=== PATIENT | male | born 1975 | race Caucasian/White ===

== ENCOUNTER 2019-05-08 15:45 | Emergency (ER) | payer OTHER ==
[~2019-05-08] VITALS: Ht 177.8 cm; Wt 90.7 kg
[~2019-05-08 15:45] MED LIST: ABAT250V; ABX; ALBU90OI INH; ALBU90OI61 INH; AMIT25 PO; AMIT50 PO; AZIT250 PO; BENZ100A PO; BUSP10 PO; BUSPIRONE; Bactrim Ds Tab1 EACH PO; CEPH500 PO; CIPR500 PO; CITA20 PO; CLIN150 PO; CYCL10 PO; Carafate1 GM/10 ML PO; DEPRESSION MED; DIAZ2 PO; DICY20 PO; DIPATR PO; DIVA500ER PO; DOXY100 PO; DOXY100T53 PO; DULO60 PO; EPIN.3I; EPIN.3I IM; FLUO20 PO; GABA300 PO; GUAI600T33 PO; HYDACE5 PO; HYDMOR2 PO; HYDMOR4 PO; HYDR1TAB94 PO; HYOS.125 SL; IBUP800 PO; Imitrex100 MG PO; KETO10 PO; LEVE500 PO; METO5A PO; MIRT30 PO; MORP30ER PO; MUPI2TO TOP; NAPR500 PO; NAPR550 PO; NORT10 PO; OMEP20ER PO; OMEP40CA12 PO; OMEPRAZOLE MAGN20 MG PO; ONDA4 PO; ONDA4ODT MM; OXYACE5T PO; OXYB5 PO; OXYC10ER PO; OXYC15ER PO; OXYC5 PO; Omeprazole20 M1 PO; PARO20 PO; PHENY100ER PO; POTA20PAC PO; PRED10 PO; PROC10; PROC10 PO; PROC25S PR; PROM25 PO; PROM25S PR; Percocet 5-3251 EACH PO; Pyridium200 MG PO; RIFA300 PO; RXCEPH500 PO; RXCLIN PO; RXONDA4ODT MM; RXOXYACE PO; RXPHEN200 PO; RXPROM25 PO; SACC250C PO; SUCR1 PO; SULTRIDS PO; SUMA25; SUMA25 PO; TAMS.4ER PO; TOPI50 PO; TRAM50 PO; TRAZODONE PO; TRIA80TC TOP; VANC250 PO; VANCOMYCIN IV; Zofran Odt4 MG SL; [UNRECOGNIZED DRUG - OTHER]
[2019-05-08 16:05] LABS: BASOPHILS PERCENT AUTO 0 % (0-2); EOSINOPHILS ABSOLUTE AUTO 0.03 K/mm3 (0.00-0.68); EOSINOPHILS PERCENT AUTO 1 % (0-6); Hematocrit 41.6 % (37.0-53.0); Hemoglobin 14.1 g/dL (13.5-17.5); IMMATURE GRAN ABSOLUTE AUTO 0.02 K/mm3 (0.00-0.10); IMMATURE GRAN PERCENT AUTO 0 % (0-1); LYMPHOCYTES PERCENT AUTO 32 % (21-46); MONOCYTES ABSOLUTE AUTO 0.45 K/mm3 (0.16-1.47); MONOCYTES PERCENT AUTO 8 % (4-13); Mean Corpuscular HGB 33.6 pg (26.0-34.0); Mean Corpuscular HGB Conc 33.9 g/dL (31.5-36.5); Mean Corpuscular Volume 99 fL (80-100); Mean Platelet Volume 9.3 fL (9.1-12.4); NEUTROPHILS ABSOLUTE AUTO 3.28 K/mm3 (1.96-9.15); NEUTROPHILS PERCENT AUTO 59 % (41-73); Platelet Count 177 K/mm3 (150-400); RDW Coefficient Variation 13.2 % (11.7-14.2); RDW Standard Deviation 47.5 fL (35.1-46.3); White Blood Cell Count 5.58 K/mm3 (4.00-11.30)
[2019-05-08 16:27] LABS: Alanine Aminotransfer (ALT/SGP 26 U/L (12-78); Albumin, Blood 3.8 g/dL (3.4-5.0); Alk Phos 86 U/L (50-136); Anion Gap 3 mmol/L (6-16); Aspartate Aminotrans (AST/SGOT 40 U/L (12-37); Bilirubin, Total 0.4 mg/dL (0.1-1.0); Blood Urea Nitrogen 20 mg/dL (8-24); Bun/Creatinine Ratio 25.2 (12.0-20.0); CO2, Blood 28 mmol/L (21-32); Chloride, Blood 109 mmol/L (98-108); Globulin, Blood 3.8 g/dL (2.2-4.0); Glomerular Filtration Rate >60 (60-); Glucose, Blood 114 mg/dL (70-99); Potassium, Blood 4.5 mmol/L (3.5-5.5); Sodium, Blood 140 mmol/L (136-145); Total Protein, Blood 7.6 g/dL (6.4-8.2)
== END 2019-05-08 17:34 | disposition home or self-care (01) ==
LOC: ER 15:45
PROVIDERS: Emergency Medicine
DX: F12.10 Cannabis abuse, uncomplicated (principal); F32.9 Major depressive disorder, single episode, unspecified; Z87.891 Personal history of nicotine dependence
CPT/HCPCS: 36415; 70450; 80053; 83605; 85025; 93005; 93010; 99284-25

== ENCOUNTER 2019-12-06 12:43 | Inpatient (IN) | payer OTHER ==
[~2019-12-06] VITALS: Ht 172.7 cm; Wt 90.0 kg
[~2019-12-06 12:43] MED LIST changes: -EPINEPHRIN0.3 MG/0.3 IM; -HALO5 PO; -LEVFLO500 PO; -LINE600 PO; -ONDA4ODT PO; -OXYC10TA19 PO; -ZOLOFT PO; -ZOLOFT50 MG PO
[2019-12-06] MEDS ORDERED: ZOLOFT50 MG PO (15:46)
[2019-12-06] MEDS ORDERED: SUMA25 PO (15:47)
[2019-12-06] MEDS ORDERED: HALO5 PO (15:48)
[2019-12-06 16:46] LABS: BASOPHILS ABSOLUTE AUTO 0.03 K/mm3 (0.00-0.23); BASOPHILS PERCENT AUTO 0 % (0-2); EOSINOPHILS ABSOLUTE AUTO 0.09 K/mm3 (0.00-0.68); EOSINOPHILS PERCENT AUTO 1 % (0-6); Hematocrit 42.4 % (37.0-53.0); Hemoglobin 14.2 g/dL (13.5-17.5); IMMATURE GRAN PERCENT AUTO 1 % (0-1); LYMPHOCYTES ABSOLUTE AUTO 1.67 K/mm3 (0.84-5.20); LYMPHOCYTES PERCENT AUTO 17 % (21-46); MONOCYTES ABSOLUTE AUTO 0.93 K/mm3 (0.16-1.47); MONOCYTES PERCENT AUTO 9 % (4-13); Mean Corpuscular HGB 32.3 pg (26.0-34.0); Mean Corpuscular HGB Conc 33.5 g/dL (31.5-36.5); Mean Corpuscular Volume 96 fL (80-100); NEUTROPHILS ABSOLUTE AUTO 7.27 K/mm3 (1.96-9.15); NEUTROPHILS PERCENT AUTO 72 % (41-73); Platelet Count 221 K/mm3 (150-400); RDW Coefficient Variation 13.2 % (11.7-14.2); RDW Standard Deviation 47.7 fL (35.1-46.3); White Blood Cell Count 10.09 K/mm3 (4.00-11.30)
--- NOTE | 2019-12-06 20:38 | NUR ---
PATIENT IS A NEW ADMIT FROM THE ED. SBA TRANSFER FROM [facility] TO BED. AXOX 3 AND FRIEND PRESENT ON ADMIT. IV VANCO AND LR STARTED IN ED INFUSING. PATIENT REPORTS 5/10 PAIN TO RIGHT AXILLARY AFTER PAIN MEDS GIVEN IN ED. DRESSING TO RIGHT AXILLARY FROM DR CLEMONS WHO DRAINED ABCESS IN ED. PATIENT ORIENTED TO ROOM AND CALL LIGHT SYSTEM. PATIENT FRIENDS REPORTS SHE WILL STAY THE NIGHT. CALL LIGHT IN REACH.
[2019-12-06] MEDS ORDERED: EPINEPHRIN0.3 MG/0.3 IM (20:45)
[2019-12-06] MEDS ORDERED: ONDA4ODT PO (20:46)
[2019-12-06] MEDS ORDERED: PROM25 PO (20:46)
[2019-12-06] MEDS ORDERED: ZOLOFT PO (20:47)
[2019-12-06 20:50] LABS: Alanine Aminotransfer (ALT/SGP 20 U/L (12-78); Albumin/Globulin Ratio 0.6 (0.8-1.8); Alk Phos 88 U/L (50-136); Anion Gap 5 mmol/L (6-16); Aspartate Aminotrans (AST/SGOT 16 U/L (12-37); Bilirubin, Total 0.5 mg/dL (0.1-1.0); Blood Urea Nitrogen 14 mg/dL (8-24); Bun/Creatinine Ratio 19.1 (12.0-20.0); CO2, Blood 27 mmol/L (21-32); Calcium, Blood 8.9 mg/dL (8.5-10.1); Chloride, Blood 103 mmol/L (98-108); Creatinine, Blood 0.73 mg/dL (0.60-1.20); Globulin, Blood 4.7 g/dL (2.2-4.0); Glomerular Filtration Rate >60 (60-); Glucose, Blood 87 mg/dL (70-99); Potassium, Blood 4.1 mmol/L (3.5-5.5); Sodium, Blood 135 mmol/L (136-145); Total Protein, Blood 7.7 g/dL (6.4-8.2)
--- NOTE | 2019-12-06 22:32 | NUR ---
NS INFUSING X ONE OF TWO BAGS. NOTED PSORISIS PER PATIENT ON CHEST AND NECK. DENIES SOB AND N/V. GIRL FRIEND PRESENT AND RECLINER PROVIDED TO STAY THE NIGHT. CALL LIGHT IN REACH.
--- NOTE | 2019-12-07 03:29 | NUR ---
SHIFT SUMMARY PATIENT HAD NO ACUTE CHANGES OBSERVED. LR FINISHED INFUSING AND VANCO FROM THE ED. NS INFUSING X ONE OF TWO BAGS AT 100 mL/HR. AXOX 4 AND INDEPENDENT IN THE ROOM. VSS/AFEBRILE. DENIES SOB AND N/V. PIV REMAINS INTACT. REPORTED RIGHT AXILLARY PAIN FROM WHERE DR CLEMONS DRAINED ABSCESS. IV TORADOL 30 MG GIVEN PER EMAR. NATALY BLOOD ON DRESSING FROM ED ON ADMIT. DRESSING CHANGED. IV ABXS INFUSED. HX IV DRUG USE AND REPORTS USES CANNABIS DAILY. PATIENT SIGNIFICANT OTHER STAYED THE NIGHT. RECLINER PROVIDED. PSORIASIS ON CHEST AND NECK PER PATIENT. CALL LIGHT IN REACH. BED IN LOWEST POSITION. WILL CONTINUE TO MONITOR UNTIL DAY SHIFT NURSE ASSUMES CARE.
--- NOTE | 2019-12-07 05:11 | NUR ---
PATIENT'S ([facility]) CLIP ON POCKET KNIFE LOCKED IN DRAW FROM ADMIT.
[2019-12-07 05:12] LABS: BASOPHILS ABSOLUTE AUTO 0.02 K/mm3 (0.00-0.23); BASOPHILS PERCENT AUTO 0 % (0-2); EOSINOPHILS ABSOLUTE AUTO 0.11 K/mm3 (0.00-0.68); EOSINOPHILS PERCENT AUTO 2 % (0-6); Hematocrit 39.1 % (37.0-53.0); Hemoglobin 13.2 g/dL (13.5-17.5); IMMATURE GRAN ABSOLUTE AUTO 0.07 K/mm3 (0.00-0.10); IMMATURE GRAN PERCENT AUTO 1 % (0-1); LYMPHOCYTES ABSOLUTE AUTO 2.03 K/mm3 (0.84-5.20); LYMPHOCYTES PERCENT AUTO 34 % (21-46); MONOCYTES ABSOLUTE AUTO 0.61 K/mm3 (0.16-1.47); MONOCYTES PERCENT AUTO 10 % (4-13); Mean Corpuscular HGB 32.4 pg (26.0-34.0); Mean Corpuscular HGB Conc 33.8 g/dL (31.5-36.5); Mean Corpuscular Volume 96 fL (80-100); Mean Platelet Volume 8.9 fL (9.1-12.4); NEUTROPHILS ABSOLUTE AUTO 3.08 K/mm3 (1.96-9.15); NEUTROPHILS PERCENT AUTO 52 % (41-73); Platelet Count 235 K/mm3 (150-400); RDW Coefficient Variation 13.3 % (11.7-14.2); RDW Standard Deviation 47.3 fL (35.1-46.3); Red Blood Cell Count 4.07 M/mm3 (4.30-5.90); White Blood Cell Count 5.92 K/mm3 (4.00-11.30)
[2019-12-07 05:41] LABS: Anion Gap 4 mmol/L (6-16); Blood Urea Nitrogen 23 mg/dL (8-24); Bun/Creatinine Ratio 28.9 (12.0-20.0); CO2, Blood 28 mmol/L (21-32); Calcium, Blood 8.8 mg/dL (8.5-10.1); Chloride, Blood 107 mmol/L (98-108); Glomerular Filtration Rate >60 (60-); Glucose, Blood 94 mg/dL (70-99); Potassium, Blood 4.2 mmol/L (3.5-5.5); Sodium, Blood 139 mmol/L (136-145)
--- NOTE | 2019-12-07 19:16 | NUR ---
SHIFT SUMMARY PT HAS BEEN SLEEPING A LOT OF THE SHIFT. MEDICATED FOR RIGHT AXILLARY PAIN MULTIPLE TIMES THIS SHIFT. DR. CLEMONS IN THIS EVENING AND REMOVED PACKING. DRY GAUZE IN PLACE. PT WILL TAKE SHOWER AFTER IV ANTIBIOTIC FINISHED PER DR. CLEMONS DIRECTIONS. NO ACUTE CHANGES THIS SHIFT. REPORT GIVEN TO CANDIDO TYSON. CALL LIGHT IN REACH.
--- NOTE | 2019-12-08 05:42 | NUR ---
SHIFT SUMMARY PT HAS HAD NO ACUTE CHANGES THIS SHIFT, MEDICATED PER MAR FOR PAIN, PT HAS BEEN OUTSIDE SEVERAL TIMES INDEP THIS SHIFT, PT SHOWERED- R AUX WOUND CLEANED AND REDRESSED AFTER, FAMILY AT BEDSIDE T/O SHIFT & AT THIS TIME, PT APPEARS TO BE SLEEPING, CALL LIGHT IN REACH, WILL CONT TO MONITOR UNTIL REPORT GIVEN TO DAY RN.
[2019-12-08 06:16] LABS: BASOPHILS ABSOLUTE AUTO 0.02 K/mm3 (0.00-0.23); BASOPHILS PERCENT AUTO 0 % (0-2); EOSINOPHILS ABSOLUTE AUTO 0.16 K/mm3 (0.00-0.68); EOSINOPHILS PERCENT AUTO 3 % (0-6); Hematocrit 37.7 % (37.0-53.0); Hemoglobin 12.5 g/dL (13.5-17.5); IMMATURE GRAN ABSOLUTE AUTO 0.09 K/mm3 (0.00-0.10); IMMATURE GRAN PERCENT AUTO 2 % (0-1); LYMPHOCYTES ABSOLUTE AUTO 2.22 K/mm3 (0.84-5.20); LYMPHOCYTES PERCENT AUTO 40 % (21-46); MONOCYTES ABSOLUTE AUTO 0.42 K/mm3 (0.16-1.47); MONOCYTES PERCENT AUTO 8 % (4-13); Mean Corpuscular HGB 31.6 pg (26.0-34.0); Mean Corpuscular HGB Conc 33.2 g/dL (31.5-36.5); Mean Corpuscular Volume 95 fL (80-100); NEUTROPHILS ABSOLUTE AUTO 2.71 K/mm3 (1.96-9.15); NEUTROPHILS PERCENT AUTO 48 % (41-73); Platelet Count 229 K/mm3 (150-400); RDW Coefficient Variation 12.8 % (11.7-14.2); RDW Standard Deviation 44.8 fL (35.1-46.3); Red Blood Cell Count 3.95 M/mm3 (4.30-5.90); White Blood Cell Count 5.62 K/mm3 (4.00-11.30)
[2019-12-08 06:34] LABS: Alanine Aminotransfer (ALT/SGP 21 U/L (12-78); Albumin, Blood 2.7 g/dL (3.4-5.0); Albumin/Globulin Ratio 0.6 (0.8-1.8); Alk Phos 80 U/L (50-136); Anion Gap 8 mmol/L (6-16); Aspartate Aminotrans (AST/SGOT 17 U/L (12-37); Bilirubin, Total 0.1 mg/dL (0.1-1.0); Blood Urea Nitrogen 19 mg/dL (8-24); Bun/Creatinine Ratio 25.1 (12.0-20.0); CO2, Blood 24 mmol/L (21-32); Calcium, Blood 8.7 mg/dL (8.5-10.1); Chloride, Blood 109 mmol/L (98-108); Creatinine, Blood 0.76 mg/dL (0.60-1.20); Globulin, Blood 4.5 g/dL (2.2-4.0); Glomerular Filtration Rate >60 (60-); Glucose, Blood 106 mg/dL (70-99); Potassium, Blood 3.9 mmol/L (3.5-5.5); Sodium, Blood 141 mmol/L (136-145); Total Protein, Blood 7.2 g/dL (6.4-8.2); Vancomycin, Trough 11.4 ug/mL (5.0-10.0)
[2019-12-08] MEDS ORDERED: OXYC10TA19 PO (12:14)
[2019-12-08] MEDS ORDERED: LINE600 PO (12:15)
--- NOTE | 2019-12-08 15:08 | NUR ---
DISCHARGE THIS RN EXPLAINED DISCHARGE INSTRUCTIONS AND MEDICATIONS TO PT AND HE REPORTS HE UNDERSTANDS. PT'S IV REMOVED WITHOUT DIFFICULTY. MEDICATIONS FAXED TO [facility] PER PT REQUEST. PT'S BELONGINGS WITH PT. PT AMBULATORY TO PRIVATE CAR.
--- NOTE | 2019-12-08 15:56 | NUR ---
SPOKE WITH DR AGUIRRE R/T DISCHARGE ABX. PER DR. AGUIRRE, D/C ZYVOX AND ADD FOLLOWING MEDICATION: LEVAQUIN 500 MG PO DAILY DISP: 7 REFILLS: 0 RX CALLED TO [facility], WHERE PT WAS WAITING AND MADE AWARE OF THE CHANGE.
[2019-12-08] MEDS ORDERED: LEVFLO500 PO (16:00)
== END 2019-12-08 14:59 | disposition home or self-care (01) | DRG 603 ==
LOC: ER 12:43 → MEDS 12:44 → ER 12:44 → MEDS 17:45
PROVIDERS: Emergency Medicine; Internal Medicine; ADMIT Internal Medicine
PROC: 0X943ZZ Drainage of Right Axilla, Percutaneous Approach (ICD-10-PCS; principal; 2019-12-06)
DX: L03.111 Cellulitis of right axilla (principal); L02.411 Cutaneous abscess of right axilla; F19.10 Other psychoactive substance abuse, uncomplicated; F32.9 Major depressive disorder, single episode, unspecified; Z88.1 Allergy status to other antibiotic agents; Z88.5 Allergy status to narcotic agent; Z88.0 Allergy status to penicillin; Z88.8 Allergy status to other drugs, medicaments and biological substances; Z87.891 Personal history of nicotine dependence
CPT/HCPCS: 36415; 73201; 80048; 80053; 80202; 83605; 85025; 87040; 87070; 87075; 87077; 87147; 87186; 87205; 96361; 96365-59; 96375-59; 99284-25; J1644; J1885; J2405; J3010; J3370; J7030; J7050; J7120; Q9967

== ENCOUNTER → 2019-12-06 | Outpatient (CLI) | payer OTHER ==
[~2019-12-06] MED LIST changes: +EPINEPHRIN0.3 MG/0.3 IM; +HALO5 PO; +LEVFLO500 PO; +LINE600 PO; -OMEPRAZOLE MAGN20 MG PO; +ONDA4ODT PO; +OXYC10TA19 PO; +ZOLOFT PO; +ZOLOFT50 MG PO
[2019-12-06 12:32] LABS: BASOPHILS ABSOLUTE AUTO 0.03 K/mm3 (0.00-0.23); BASOPHILS PERCENT AUTO 0 % (0-2); EOSINOPHILS ABSOLUTE AUTO 0.11 K/mm3 (0.00-0.68); EOSINOPHILS PERCENT AUTO 1 % (0-6); Hematocrit 44.4 % (37.0-53.0); Hemoglobin 14.7 g/dL (13.5-17.5); IMMATURE GRAN ABSOLUTE AUTO 0.09 K/mm3 (0.00-0.10); IMMATURE GRAN PERCENT AUTO 1 % (0-1); LYMPHOCYTES ABSOLUTE AUTO 2.03 K/mm3 (0.84-5.20); LYMPHOCYTES PERCENT AUTO 19 % (21-46); MONOCYTES ABSOLUTE AUTO 0.94 K/mm3 (0.16-1.47); MONOCYTES PERCENT AUTO 9 % (4-13); Mean Corpuscular HGB 32.3 pg (26.0-34.0); Mean Corpuscular HGB Conc 33.1 g/dL (31.5-36.5); Mean Corpuscular Volume 98 fL (80-100); NEUTROPHILS ABSOLUTE AUTO 7.43 K/mm3 (1.96-9.15); NEUTROPHILS PERCENT AUTO 70 % (41-73); Platelet Count 239 K/mm3 (150-400); RDW Coefficient Variation 13.4 % (11.7-14.2); RDW Standard Deviation 48.9 fL (35.1-46.3); Red Blood Cell Count 4.55 M/mm3 (4.30-5.90); White Blood Cell Count 10.63 K/mm3 (4.00-11.30)
== END ==
LOC: LAB EV 12:04 → LAB SHORT 12:04
PROVIDERS: Emergency Medicine
DX: Z09 Encounter for follow-up examination after completed treatment for conditions other than malignant neoplasm (principal); Z87.39 Personal history of other diseases of the musculoskeletal system and connective tissue
CPT/HCPCS: 85025

== ENCOUNTER 2020-06-26 16:20 | Emergency (ER) | payer OTHER ==
[~2020-06-26] VITALS: Ht 170.2 cm; Wt 90.7 kg
[~2020-06-26 16:20] MED LIST changes: +EPINEPHRIN0.3 MG/0.3 IM; +EPIPEN 2-P0.3 MG/0.1; +HALO5 PO; +LEVFLO500 PO; +LINE600 PO; +MEDICAL MARIJUANA; +ONDA4ODT PO; +OXYC10TA19 PO; +SLIPPERY ELM; +ZOLOFT PO; +ZOLOFT50 MG PO
[2020-06-26 17:34] LABS: BASOPHILS ABSOLUTE AUTO 0.02 K/mm3 (0.00-0.23); BASOPHILS PERCENT AUTO 0 % (0-2); EOSINOPHILS PERCENT AUTO 0 % (0-6); Hematocrit 43.9 % (37.0-53.0); Hemoglobin 15.5 g/dL (13.5-17.5); IMMATURE GRAN ABSOLUTE AUTO 0.04 K/mm3 (0.00-0.10); IMMATURE GRAN PERCENT AUTO 0 % (0-1); LYMPHOCYTES ABSOLUTE AUTO 1.44 K/mm3 (0.84-5.20); LYMPHOCYTES PERCENT AUTO 11 % (21-46); MONOCYTES ABSOLUTE AUTO 0.58 K/mm3 (0.16-1.47); MONOCYTES PERCENT AUTO 4 % (4-13); Mean Corpuscular HGB 32.9 pg (26.0-34.0); Mean Corpuscular HGB Conc 35.3 g/dL (31.5-36.5); Mean Corpuscular Volume 93 fL (80-100); NEUTROPHILS ABSOLUTE AUTO 10.96 K/mm3 (1.96-9.15); NEUTROPHILS PERCENT AUTO 84 % (41-73); Platelet Count 187 K/mm3 (150-400); RDW Standard Deviation 44.7 fL (35.1-46.3); Red Blood Cell Count 4.71 M/mm3 (4.30-5.90); White Blood Cell Count 13.04 K/mm3 (4.00-11.30)
[2020-06-26 17:46] LABS: Troponin I <0.015 ng/mL (0.000-0.040)
[2020-06-26 17:47] LABS: Alanine Aminotransfer (ALT/SGP 22 U/L (12-78); Albumin, Blood 4.2 g/dL (3.4-5.0); Albumin/Globulin Ratio 0.9 (0.8-1.8); Alk Phos 84 U/L (50-136); Anion Gap 9 mmol/L (6-16); Aspartate Aminotrans (AST/SGOT 18 U/L (12-37); Bilirubin, Direct <0.1 mg/dL (0.0-0.3); Bilirubin, Indirect Unable to Calculate mg/dL (0.1-0.7); Bilirubin, Total 0.4 mg/dL (0.1-1.0); Blood Urea Nitrogen 17 mg/dL (8-24); Bun/Creatinine Ratio 21.2 (12.0-20.0); CO2, Blood 21 mmol/L (21-32); Calcium, Blood 9.7 mg/dL (8.5-10.1); Chloride, Blood 110 mmol/L (98-108); Globulin, Blood 4.7 g/dL (2.2-4.0); Glomerular Filtration Rate >60 (60-); Glucose, Blood 128 mg/dL (70-99); Potassium, Blood 3.9 mmol/L (3.5-5.5); Sodium, Blood 140 mmol/L (136-145); Total Protein, Blood 8.9 g/dL (6.4-8.2)
[2020-06-26] MEDS ORDERED: SERT100 PO (17:54)
[2020-06-26] MEDS ORDERED: Pepcid20 MG PO (20:26)
== END 2020-06-26 20:30 | disposition home or self-care (01) ==
LOC: ER 16:20
PROVIDERS: Emergency Medicine
DX: R10.13 Epigastric pain (principal); R56.9 Unspecified convulsions; R11.2 Nausea with vomiting, unspecified; R11.10 Vomiting, unspecified; Z90.89 Acquired absence of other organs; F32.9 Major depressive disorder, single episode, unspecified; Z88.1 Allergy status to other antibiotic agents; Z88.0 Allergy status to penicillin; Z88.6 Allergy status to analgesic agent; Z88.5 Allergy status to narcotic agent; Z91.030 Bee allergy status; Z79.899 Other long term (current) drug therapy; Z87.891 Personal history of nicotine dependence
CPT/HCPCS: 36415; 71045; 80048; 80076; 83690; 83735; 84484; 85025; 93005; 93010; 96365; 96375; 99284-25; J1630; J1953; J2405

== ENCOUNTER 2021-03-20 13:43 | Emergency (ER) | payer OTHER ==
[~2021-03-20 13:43] MED LIST changes: +Pepcid20 MG PO; +SERT100 PO
== END 2021-03-20 15:11 | disposition left against medical advice (07) ==
LOC: ER 13:43
DX: Z53.21 Procedure and treatment not carried out due to patient leaving prior to being seen by health care provider (principal)

== ENCOUNTER → 2021-10-03 | Outpatient (CLI) | payer OTHER ==
[2021-10-08 07:09] LABS: COTININE Negative ng/mL (Cutoff=300)
== END | disposition home or self-care (01) ==
LOC: LAB 14:52 → LAB SHORT 14:52
PROVIDERS: Orthopaedic Surgery
DX: Z01.812 Encounter for preprocedural laboratory examination (principal); M16.12 Unilateral primary osteoarthritis, left hip; Z87.891 Personal history of nicotine dependence

== ENCOUNTER → 2021-12-02 | Outpatient (CLI) | payer OTHER ==
[2021-12-02 17:53] LABS: U Amphetamine Screen DETECTED; U Barbituate Screen Not Detected; U Benzodiazapine Screen DETECTED; U Buprenorphine Screen Not Detected; U Cannabinoids Screen DETECTED; U Cocaine Screen Not Detected; U Methadone Screen Not Detected; U Methamphetamine Screen DETECTED; U Opiates Screen DETECTED; U Oxycodone Screen Not Detected; U Phencyclidine Screen Not Detected; U Propoxyphene Screen Not Detected
== END ==
LOC: LAB SHORT 15:41
PROVIDERS: Orthopaedic Surgery
DX: M16.12 Unilateral primary osteoarthritis, left hip (principal); Z02.89 Encounter for other administrative examinations

== ENCOUNTER 2022-02-04 11:55 | Day surgery (SDC) | payer OTHER ==
[~2022-02-04] VITALS: Ht 172.7 cm; Wt 111.6 kg
--- NOTE | 2022-02-04 12:47 | NUR ---
History, Chart, Medications and Allergies reviewed before start of procedure. Patient confirms NPO status and agrees with scheduled surgery. PT CHART SHOWS MSSA + ON 01/20/22, PER PT, HE WAS ONLY GIVEN THE TWO HCG SHOWERS AND NO MUPIROCIN OINTMENT FOR NARES. WILL NOTIFY DR. MOSS.
--- NOTE | 2022-02-04 17:46 | NUR ---
ARRIVED TO UNIT FORM PACU IN BED. VSS ON RA, S/P L RADHA, RECIEVED SPINAL, HAS FULL SENSATION TO BLE, DENIES N/T. AQUACEL & POLAR PACK IN PLACE TO L HIP, C/D/I. TOLERATING PO LIQUIDS AT THIS TIME.
--- NOTE | 2022-02-04 19:07 | NUR ---
O2 DROPPING TO MID 80'S WHEN PATIENT FALLS ASLEEP, 2L O2 VIA NC PLACED, MAINTAINING >92%
--- NOTE | 2022-02-05 04:30 | NUR ---
SHIFT SUMMARY DRESSING TO LEFT HIP REMAINS CDI. OOB WITH 1 ASSIST USING GB + FWW--SLOW MOVING, BUT DOING WELL. 2 ROXICODONE FOR PAIN + X1 IV DILAUDID FOR BREAKTHROUGH PAIN MANAGEMENT. IV SL. CALL LIGHT WITHIN REACH.
[2022-02-05 05:28] LABS: BASOPHILS ABSOLUTE AUTO 0.01 K/mm3 (0.00-0.23); BASOPHILS PERCENT AUTO 0 % (0-2); EOSINOPHILS PERCENT AUTO 0 % (0-6); Hemoglobin 11.1 g/dL (13.5-17.5); IMMATURE GRAN ABSOLUTE AUTO 0.05 K/mm3 (0.00-0.10); IMMATURE GRAN PERCENT AUTO 1 % (0-1); LYMPHOCYTES ABSOLUTE AUTO 0.99 K/mm3 (0.84-5.20); LYMPHOCYTES PERCENT AUTO 10 % (21-46); MONOCYTES PERCENT AUTO 5 % (4-13); Mean Corpuscular HGB Conc 34.7 g/dL (31.5-36.5); Mean Corpuscular Volume 98 fL (80-100); NEUTROPHILS ABSOLUTE AUTO 8.35 K/mm3 (1.96-9.15); NEUTROPHILS PERCENT AUTO 84 % (41-73); Platelet Count 143 K/mm3 (150-400); RDW Standard Deviation 50.2 fL (35.1-46.3); Red Blood Cell Count 3.26 M/mm3 (4.30-5.90)
[2022-02-05 06:05] LABS: Anion Gap 7 mmol/L (6-16); Blood Urea Nitrogen 20 mg/dL (8-24); Bun/Creatinine Ratio 24.5 (12.0-20.0); CO2, Blood 25 mmol/L (21-32); Calcium, Blood 8.9 mg/dL (8.5-10.1); Chloride, Blood 106 mmol/L (98-108); Creatinine, Blood 0.82 mg/dL (0.60-1.20); Glomerular Filtration Rate >60 (60-); Glucose, Blood 119 mg/dL (70-99); Potassium, Blood 4.3 mmol/L (3.5-5.5); Sodium, Blood 138 mmol/L (136-145)
--- NOTE | 2022-02-05 06:07 | NUR ---
NOTIFIED OF PATIENTS PAIN.
[2022-02-05] MEDS ORDERED: Percocet 5-3251 EACH PO (08:07)
[2022-02-05] MEDS ORDERED: XARELTO20 MG PO (08:08)
--- NOTE | 2022-02-05 14:41 | NUR ---
DISCHARGE NOTE: PATIENT WAS EDUCATED ON DISCHARGE INSTRUCTIONS AND VERBALIZED UNDERSTANDING OF INSTRUCTIONS. HARD PERSCRIPTIONS ARE IN INSTRUCTIONS FOLDER. IV WAS TAKEN OUT AND WNL. PATIENT IS VOIDING AND TOLERATING PO INTAKE. PAIN IS SOMEWHAT MANAGED WITH PO PAIN MEDICATION. PATIENT IS A SBA WITH FWW AND GAIT BELT. AQUACEL ON RIGHT HIP IS C/D/I. PATIENT IS GETTING DRESSED AND ITEMS IN THE ROOM GATHERED. PATIENT WILL BE WHEELCHAIRED OUT TO WIFES CAR TO BE TAKEN HOME.
== END 2022-02-05 14:49 | disposition home or self-care (01) ==
LOC: ORSCMMR 11:55 → ORD 13:45 → ORSCMMR 13:45 → SURS 17:22 → ORSCMMR 02-05 14:49
PROVIDERS: Orthopaedic Surgery
PROC: 0SRB0JZ Replacement of Left Hip Joint with Synthetic Substitute, Open Approach (ICD-10-PCS; principal; 2022-02-04 13:30)
DX: M16.12 Unilateral primary osteoarthritis, left hip (principal); J44.9 Chronic obstructive pulmonary disease, unspecified; F41.9 Anxiety disorder, unspecified; F32.A Depression, unspecified; K21.9 Gastro-esophageal reflux disease without esophagitis; G40.909 Epilepsy, unspecified, not intractable, without status epilepticus; K76.9 Liver disease, unspecified; Z87.891 Personal history of nicotine dependence; Z79.899 Other long term (current) drug therapy
CPT/HCPCS: 36415; 72170; 80048; 85025; 97110; 97116; 97162; 97530; A9270; C1776; J0171; J0735; J1100; J1170; J1885; J2250; J2370; J2405; J2704; J2795; J3010; J3370; J7050; J7120

== ENCOUNTER 2022-05-05 18:16 | Observation (INO) | payer OTHER ==
[~2022-05-05] VITALS: Ht 172.7 cm; Wt 106.6 kg
[~2022-05-05 18:16] MED LIST changes: +XARELTO20 MG PO
[2022-05-05 19:37] LABS: Influenza A, PCR NEGATIVE (NEGATIVE); Influenza B, PCR NEGATIVE (NEGATIVE); Resp Syncytial Virus, PCR NEGATIVE (NEGATIVE); SARS-Cov-2 (COVID-19) PCR, MMC NEGATIVE (NEGATIVE)
[2022-05-05 19:48] LABS: BASOPHILS ABSOLUTE AUTO 0.01 K/mm3 (0.00-0.23); BASOPHILS PERCENT AUTO 0 % (0-2); EOSINOPHILS ABSOLUTE AUTO 0.13 K/mm3 (0.00-0.68); EOSINOPHILS PERCENT AUTO 2 % (0-6); Hematocrit 37.8 % (37.0-53.0); Hemoglobin 12.8 g/dL (13.5-17.5); IMMATURE GRAN ABSOLUTE AUTO 0.02 K/mm3 (0.00-0.10); IMMATURE GRAN PERCENT AUTO 0 % (0-1); LYMPHOCYTES ABSOLUTE AUTO 1.27 K/mm3 (0.84-5.20); LYMPHOCYTES PERCENT AUTO 16 % (21-46); MONOCYTES PERCENT AUTO 10 % (4-13); Mean Corpuscular HGB 32.7 pg (26.0-34.0); Mean Corpuscular HGB Conc 33.9 g/dL (31.5-36.5); Mean Corpuscular Volume 97 fL (80-100); Mean Platelet Volume 9.9 fL (9.1-12.4); NEUTROPHILS PERCENT AUTO 72 % (41-73); Platelet Count 156 K/mm3 (150-400); RDW Coefficient Variation 14.2 % (11.7-14.2); RDW Standard Deviation 49.6 fL (35.1-46.3); Red Blood Cell Count 3.91 M/mm3 (4.30-5.90); White Blood Cell Count 7.93 K/mm3 (4.00-11.30)
[2022-05-05 20:01] LABS: D-Dimer, Quantitative 2.87 mg/L FEU (0.00-0.52)
[2022-05-05 20:04] LABS: Albumin, Blood 3.6 g/dL (3.4-5.0); Albumin/Globulin Ratio 0.8 (0.8-1.8); Bilirubin, Total 0.4 mg/dL (0.1-1.0); Bun/Creatinine Ratio 21.7 (12.0-20.0); Calcium, Blood 9.3 mg/dL (8.5-10.1); Creatinine, Blood 0.79 mg/dL (0.60-1.20); Globulin, Blood 4.3 g/dL (2.2-4.0); Potassium, Blood 4.3 mmol/L (3.5-5.5); Total Protein, Blood 7.9 g/dL (6.4-8.2)
[2022-05-05 22:16] LABS: Anti-Xa UFH, PHA Monitoring <0.10 IU/mL; International Normalized Ratio 1.05
[2022-05-06 05:22] LABS: Albumin, Blood 3.7 g/dL (3.4-5.0); Albumin/Globulin Ratio 0.8 (0.8-1.8); Bilirubin, Total 0.5 mg/dL (0.1-1.0); Calcium, Blood 9.6 mg/dL (8.5-10.1); Creatinine, Blood 0.69 mg/dL (0.60-1.20); Globulin, Blood 4.7 g/dL (2.2-4.0); Potassium, Blood 3.7 mmol/L (3.5-5.5); Total Protein, Blood 8.4 g/dL (6.4-8.2)
[2022-05-06 06:00] LABS: BASOPHILS ABSOLUTE AUTO 0.01 K/mm3 (0.00-0.23); BASOPHILS PERCENT AUTO 0 % (0-2); EOSINOPHILS PERCENT AUTO 0 % (0-6); Hematocrit 40.5 % (37.0-53.0); Hemoglobin 13.6 g/dL (13.5-17.5); IMMATURE GRAN ABSOLUTE AUTO 0.05 K/mm3 (0.00-0.10); IMMATURE GRAN PERCENT AUTO 1 % (0-1); LYMPHOCYTES ABSOLUTE AUTO 0.83 K/mm3 (0.84-5.20); LYMPHOCYTES PERCENT AUTO 9 % (21-46); MONOCYTES ABSOLUTE AUTO 0.71 K/mm3 (0.16-1.47); MONOCYTES PERCENT AUTO 8 % (4-13); Mean Corpuscular HGB 32.7 pg (26.0-34.0); Mean Corpuscular HGB Conc 33.6 g/dL (31.5-36.5); Mean Corpuscular Volume 97 fL (80-100); Mean Platelet Volume 10.4 fL (9.1-12.4); NEUTROPHILS ABSOLUTE AUTO 7.41 K/mm3 (1.96-9.15); NEUTROPHILS PERCENT AUTO 82 % (41-73); Platelet Count 155 K/mm3 (150-400); RDW Coefficient Variation 13.9 % (11.7-14.2); RDW Standard Deviation 50.1 fL (35.1-46.3); Red Blood Cell Count 4.16 M/mm3 (4.30-5.90); White Blood Cell Count 9.01 K/mm3 (4.00-11.30)
--- NOTE | 2022-05-06 06:30 | NUR ---
SHIFT SUMMARY 47 YR M ADMITTED ON 05/05/22 FOR BODY PAIN AND SOB. FULL CODE. PT WAS ADMITTED LAST NIGHT AND UPON ARRIVAL STATED THAT HE FELT HORRIBLE. HE WAS GIVEN FENTNYL PER EMAR AND AT ONE POINT HE VOMITED APPROX 100 ML OF YELLOWISH LIQUID. HE WAS GIVEN ZOFRAN PER EMAR. THROUGHOUT THE SHIFT PT C/O BODY ACHES CHEST PAIN, AND NAUSEA. HE HAS NOT VOMITED AGAIN SINCE BEING GIVEN THE ZOFRAN.
[2022-05-06] MEDS ORDERED: Methadose 40 mg40 MG PO (09:56)
--- NOTE | 2022-05-06 10:07 | NUR ---
PT TAKES METHADONE AT HOME. DR. ENCISO NOTIFIED THAT THE PT TAKES 160MG OF METHADONE DAILY AND THAT PT REMAINS NAUSEOUS AFTER ADMINISTERED ZOFRAN.
[2022-05-06] MEDS ORDERED: Ativan1 MG PO (11:17)
[2022-05-06] MEDS ORDERED: XARELTO15 MG PO (12:07)
[2022-05-06] MEDS ORDERED: XARELTO20 MG PO (12:07)
--- NOTE | 2022-05-06 18:01 | NUR ---
SHIFT SUMMARY METHADONE & XARELTO STARTED THIS SHIFT. HEPARIN GTT DISCONTINUED. PT CLAMY, NAUSEATED, AND HEADACHE T/O THE DAY. DR. ENCISO NOTIFED AND IMITREX ORDERED. ICE ALSO OFFERED FOR PAIN RELIEF. PT FEVER FREE THIS SHIFT. OTHER VITALS REVIEWED & STABLE. PT HAD REFUSED TO EAT TODAY DUE TO NAUSEA, BUT DOES STATE HE IS FEELING SLIGHTLY BETTER THIS EVENING. FLUIDS ENCOURAGED TO STAY HYDRATED. NO OTHER NEEDS AT THIS TIME AND NO OTHER CHANGES IN ASSESSMENT AT THIS TIME.
[2022-05-06 22:48] LABS: U Amphetamine Screen Not Detected; U Barbituate Screen Not Detected; U Benzodiazapine Screen DETECTED; U Buprenorphine Screen Not Detected; U Cannabinoids Screen DETECTED; U Cocaine Screen Not Detected; U Methadone Screen DETECTED; U Methamphetamine Screen Not Detected; U Opiates Screen Not Detected; U Oxycodone Screen Not Detected; U Phencyclidine Screen Not Detected; U Propoxyphene Screen Not Detected
--- NOTE | 2022-05-07 04:30 | NUR ---
SHIFT SUMMARY PT CONTINUES TO HAVE SOME PAIN WITH INSPIRATION AND A HEADACHE. PT MEDICATED PER EMAR. PT STRUGGLED TO SLEEP, BUT WAS FINALLY ABLE TO SLEEP FOR A SHORT PERIOD OF TIME BEFORE HIS TELE BATTERIES NEEDED REPLACED. PT MEDICATED PER EMAR RECENTLY AND PT APPEARS TO BE RESTING AT THIS TIME. PT HAS CALL LIGHT WITHIN HIS REACH. PT STILL HAVING EPISODES OF NAUSEA. HE TRIED TO EAT EARLIER THIS EVENING, BUT IT MADE HIS NAUSEA WORSE. PT MEDICATED AT THAT TIME.
--- NOTE | 2022-05-07 08:00 | NUR ---
pt laying in bed awake a/ox3, pleasant and cooperative with care, follows commands well, denies pain, states his breathing is getting better, he is on r/a, resp even and unlabored, no cough noted, hrr, tele in place runinng sr in the 60's, voids via urinal, reports reg bm's, skin c/w/d, dionne, gema, call light in reach.
[2022-05-07] MEDS ORDERED: SUMA25 PO (12:51)
--- NOTE | 2022-05-07 14:47 | NUR ---
pt has been discharged to home, iv removed intact, went over discharge instructions, he verbalized understanding, new medication faxed to [facility], has all belongings, left via wheelchair with person picking him up and cutter operator asbestos shingle.
== END 2022-05-07 14:50 | disposition home or self-care (01) ==
LOC: ER 18:16 → MEDS 18:17 → ER 21:55 → MEDS 22:58
PROVIDERS: Family Medicine; Physician Assistant; ADMIT Internal Medicine
DX: I26.94 Multiple subsegmental thrombotic pulmonary emboli without acute cor pulmonale (principal); I82.412 Acute embolism and thrombosis of left femoral vein; G89.29 Other chronic pain; J44.9 Chronic obstructive pulmonary disease, unspecified; G40.909 Epilepsy, unspecified, not intractable, without status epilepticus; G43.909 Migraine, unspecified, not intractable, without status migrainosus; F32.9 Major depressive disorder, single episode, unspecified; Z88.5 Allergy status to narcotic agent; Z88.0 Allergy status to penicillin; Z88.2 Allergy status to sulfonamides; Z88.6 Allergy status to analgesic agent; Z88.1 Allergy status to other antibiotic agents; Z91.038 Other insect allergy status; Z87.891 Personal history of nicotine dependence; Z96.642 Presence of left artificial hip joint; Z20.822 Contact with and (suspected) exposure to COVID-19
CPT/HCPCS: 0241U; 36415; 71045; 71260; 80053; 84484; 85025; 85379; 85520; 85610; 85730; 93005; 93010; 93971; 96374; 96375; 96376; 99285-25; A9270; C8929; G0378; J1644; J2405; J3010; Q9957; Q9967

== ENCOUNTER 2022-05-11 18:56 | Emergency (ER) | payer OTHER ==
[~2022-05-11] VITALS: Ht 172.7 cm; Wt 104.3 kg
[~2022-05-11 18:56] MED LIST changes: +Ativan1 MG PO; +Methadose 40 mg40 MG PO; +XARELTO15 MG PO
[2022-05-11 19:49] LABS: BASOPHILS ABSOLUTE AUTO 0.01 K/mm3 (0.00-0.23); BASOPHILS PERCENT AUTO 0 % (0-2); EOSINOPHILS ABSOLUTE AUTO 0.13 K/mm3 (0.00-0.68); EOSINOPHILS PERCENT AUTO 2 % (0-6); Hematocrit 34.9 % (37.0-53.0); Hemoglobin 11.6 g/dL (13.5-17.5); IMMATURE GRAN ABSOLUTE AUTO 0.05 K/mm3 (0.00-0.10); IMMATURE GRAN PERCENT AUTO 1 % (0-1); LYMPHOCYTES ABSOLUTE AUTO 1.41 K/mm3 (0.84-5.20); LYMPHOCYTES PERCENT AUTO 21 % (21-46); MONOCYTES ABSOLUTE AUTO 0.42 K/mm3 (0.16-1.47); MONOCYTES PERCENT AUTO 6 % (4-13); Mean Corpuscular HGB Conc 33.2 g/dL (31.5-36.5); Mean Corpuscular Volume 96 fL (80-100); Mean Platelet Volume 9.4 fL (9.1-12.4); NEUTROPHILS ABSOLUTE AUTO 4.58 K/mm3 (1.96-9.15); NEUTROPHILS PERCENT AUTO 69 % (41-73); Platelet Count 202 K/mm3 (150-400); RDW Coefficient Variation 13.9 % (11.7-14.2); RDW Standard Deviation 49.4 fL (35.1-46.3); Red Blood Cell Count 3.63 M/mm3 (4.30-5.90)
[2022-05-11 20:06] LABS: Albumin/Globulin Ratio 0.7 (0.8-1.8); Bilirubin, Total 0.1 mg/dL (0.1-1.0); Bun/Creatinine Ratio 17.9 (12.0-20.0); Calcium, Blood 9.3 mg/dL (8.5-10.1); Creatinine, Blood 0.78 mg/dL (0.60-1.20); Globulin, Blood 4.3 g/dL (2.2-4.0); Potassium, Blood 4.1 mmol/L (3.5-5.5); Total Protein, Blood 7.3 g/dL (6.4-8.2)
== END 2022-05-11 21:53 | disposition home or self-care (01) ==
LOC: ER 18:56
PROVIDERS: Physician Assistant
DX: M79.661 Pain in right lower leg (principal); R07.9 Chest pain, unspecified; J44.9 Chronic obstructive pulmonary disease, unspecified; Z28.310 Unvaccinated for COVID-19; Z88.5 Allergy status to narcotic agent; Z88.2 Allergy status to sulfonamides; Z88.6 Allergy status to analgesic agent; Z88.1 Allergy status to other antibiotic agents; Z91.038 Other insect allergy status; Z79.899 Other long term (current) drug therapy; Z79.01 Long term (current) use of anticoagulants
CPT/HCPCS: 36415; 71046; 80053; 83690; 83880; 84484; 85025; 93005; 93010; 93971; 99284-25

== ENCOUNTER 2022-08-06 11:10 | Emergency (ER) | payer OTHER ==
[~2022-08-06] VITALS: Ht 172.7 cm; Wt 107.5 kg
[2022-08-06] MEDS ORDERED: METPRE4DP PO (14:19)
[2022-08-06] MEDS ORDERED: Robaxin750 MG PO (14:19)
== END 2022-08-06 14:38 | disposition home or self-care (01) ==
LOC: ER 11:10
DX: M77.8 Other enthesopathies, not elsewhere classified (principal); J44.9 Chronic obstructive pulmonary disease, unspecified; G43.909 Migraine, unspecified, not intractable, without status migrainosus; G40.909 Epilepsy, unspecified, not intractable, without status epilepticus; Z88.1 Allergy status to other antibiotic agents; Z91.038 Other insect allergy status; Z88.0 Allergy status to penicillin; Z88.6 Allergy status to analgesic agent; Z88.8 Allergy status to other drugs, medicaments and biological substances; Z88.2 Allergy status to sulfonamides; Z79.899 Other long term (current) drug therapy; Z79.01 Long term (current) use of anticoagulants; Z86.718 Personal history of other venous thrombosis and embolism; Z86.711 Personal history of pulmonary embolism; Z87.891 Personal history of nicotine dependence
CPT/HCPCS: 73030; 96372; 99283-25; J1885

== ENCOUNTER 2022-09-14 11:07 | Emergency (ER) | payer OTHER ==
[~2022-09-14] VITALS: Ht 172.7 cm; Wt 122.5 kg
[~2022-09-14 11:07] MED LIST changes: +METPRE4DP PO; +Robaxin750 MG PO
[2022-09-14] MEDS ORDERED: IRON18 MG (11:36)
[2022-09-14] MEDS ORDERED: Cialis2.5 MG (11:36)
[2022-09-14] MEDS ORDERED: ISONIAZID (11:37)
== END 2022-09-14 14:30 | disposition home or self-care (01) ==
LOC: ER 11:07
DX: R51.9 Headache, unspecified (principal); G89.29 Other chronic pain; T50.915A Adverse effect of multiple unspecified drugs, medicaments and biological substances, initial encounter; Z79.01 Long term (current) use of anticoagulants; Z79.899 Other long term (current) drug therapy; Z88.0 Allergy status to penicillin; Z88.5 Allergy status to narcotic agent; Z88.2 Allergy status to sulfonamides; Z91.030 Bee allergy status; Z87.891 Personal history of nicotine dependence
CPT/HCPCS: 36415; 70450; J1100; J1200; J1790; J2765

== ENCOUNTER → 2022-10-06 | Outpatient (CLI) | payer OTHER ==
[~2022-10-06] MED LIST changes: +Cialis2.5 MG; +IRON18 MG; +ISONIAZID
[2022-10-06 12:21] LABS: Albumin, Blood 3.6 g/dL (3.4-5.0); Albumin/Globulin Ratio 0.9 (0.8-1.8); Bilirubin, Total 0.2 mg/dL (0.1-1.0); Bun/Creatinine Ratio 25.5 (12.0-20.0); Calcium, Blood 9.4 mg/dL (8.5-10.1); Creatinine, Blood 0.71 mg/dL (0.60-1.20); Globulin, Blood 4.1 g/dL (2.2-4.0); Potassium, Blood 3.8 mmol/L (3.5-5.5); Total Protein, Blood 7.7 g/dL (6.4-8.2)
[2022-10-06 12:26] LABS: BASOPHILS ABSOLUTE AUTO 0.01 K/mm3 (0.00-0.23); BASOPHILS PERCENT AUTO 0 % (0-2); EOSINOPHILS ABSOLUTE AUTO 0.14 K/mm3 (0.00-0.68); EOSINOPHILS PERCENT AUTO 3 % (0-6); Hemoglobin 12.9 g/dL (13.5-17.5); IMMATURE GRAN ABSOLUTE AUTO 0.02 K/mm3 (0.00-0.10); IMMATURE GRAN PERCENT AUTO 0 % (0-1); LYMPHOCYTES ABSOLUTE AUTO 1.48 K/mm3 (0.84-5.20); LYMPHOCYTES PERCENT AUTO 28 % (21-46); MONOCYTES ABSOLUTE AUTO 0.47 K/mm3 (0.16-1.47); MONOCYTES PERCENT AUTO 9 % (4-13); Mean Corpuscular HGB 33.7 pg (26.0-34.0); Mean Corpuscular HGB Conc 34.9 g/dL (31.5-36.5); Mean Corpuscular Volume 97 fL (80-100); NEUTROPHILS ABSOLUTE AUTO 3.14 K/mm3 (1.96-9.15); NEUTROPHILS PERCENT AUTO 60 % (41-73); Platelet Count 196 K/mm3 (150-400); RDW Coefficient Variation 16.2 % (11.7-14.2); RDW Standard Deviation 56.1 fL (35.1-46.3); Red Blood Cell Count 3.83 M/mm3 (4.30-5.90); White Blood Cell Count 5.26 K/mm3 (4.00-11.30)
== END | disposition home or self-care (01) ==
LOC: RAD SHORT 10:47
PROVIDERS: Family Medicine
DX: Z22.7 Latent tuberculosis (principal)
CPT/HCPCS: 80053; 85025

== ENCOUNTER → 2022-11-04 | Outpatient (CLI) | payer OTHER ==
[2022-11-04 13:46] LABS: BASOPHILS ABSOLUTE AUTO 0.01 K/mm3 (0.00-0.23); BASOPHILS PERCENT AUTO 0 % (0-2); EOSINOPHILS ABSOLUTE AUTO 0.14 K/mm3 (0.00-0.68); EOSINOPHILS PERCENT AUTO 3 % (0-6); Hematocrit 38.9 % (37.0-53.0); Hemoglobin 13.5 g/dL (13.5-17.5); IMMATURE GRAN ABSOLUTE AUTO 0.01 K/mm3 (0.00-0.10); IMMATURE GRAN PERCENT AUTO 0 % (0-1); LYMPHOCYTES ABSOLUTE AUTO 1.38 K/mm3 (0.84-5.20); LYMPHOCYTES PERCENT AUTO 27 % (21-46); MONOCYTES ABSOLUTE AUTO 0.46 K/mm3 (0.16-1.47); MONOCYTES PERCENT AUTO 9 % (4-13); Mean Corpuscular HGB Conc 34.7 g/dL (31.5-36.5); Mean Corpuscular Volume 95 fL (80-100); NEUTROPHILS ABSOLUTE AUTO 3.18 K/mm3 (1.96-9.15); NEUTROPHILS PERCENT AUTO 61 % (41-73); Platelet Count 204 K/mm3 (150-400); RDW Coefficient Variation 15.7 % (11.7-14.2); RDW Standard Deviation 55.2 fL (35.1-46.3); Red Blood Cell Count 4.09 M/mm3 (4.30-5.90); White Blood Cell Count 5.18 K/mm3 (4.00-11.30)
[2022-11-04 15:28] LABS: Albumin, Blood 3.9 g/dL (3.4-5.0); Albumin/Globulin Ratio 0.9 (0.8-1.8); Bilirubin, Total 0.3 mg/dL (0.1-1.0); Bun/Creatinine Ratio 26.8 (12.0-20.0); Calcium, Blood 9.5 mg/dL (8.5-10.1); Creatinine, Blood 0.86 mg/dL (0.60-1.20); Globulin, Blood 4.2 g/dL (2.2-4.0); Potassium, Blood 3.3 mmol/L (3.5-5.5); Total Protein, Blood 8.1 g/dL (6.4-8.2)
== END | disposition home or self-care (01) ==
LOC: LAB SHORT 09:20
PROVIDERS: Family Medicine
DX: Z22.7 Latent tuberculosis (principal)
CPT/HCPCS: 80053; 85025

== ENCOUNTER → 2022-12-05 | Outpatient (CLI) | payer OTHER ==
[~2022-12-05] MED LIST changes: +Cleocin HCl150 MG PO; +IBU600 M1 PO; +Voltaren100 GM TOP
[2022-12-05 14:47] LABS: BASOPHILS ABSOLUTE AUTO 0.01 K/mm3 (0.00-0.23); BASOPHILS PERCENT AUTO 0 % (0-2); EOSINOPHILS ABSOLUTE AUTO 0.13 K/mm3 (0.00-0.68); EOSINOPHILS PERCENT AUTO 3 % (0-6); Hematocrit 38.9 % (37.0-53.0); Hemoglobin 13.6 g/dL (13.5-17.5); IMMATURE GRAN ABSOLUTE AUTO 0.01 K/mm3 (0.00-0.10); IMMATURE GRAN PERCENT AUTO 0 % (0-1); LYMPHOCYTES PERCENT AUTO 28 % (21-46); MONOCYTES ABSOLUTE AUTO 0.36 K/mm3 (0.16-1.47); MONOCYTES PERCENT AUTO 7 % (4-13); Mean Corpuscular HGB 33.6 pg (26.0-34.0); Mean Corpuscular Volume 96 fL (80-100); Mean Platelet Volume 10.3 fL (9.1-12.4); NEUTROPHILS ABSOLUTE AUTO 3.18 K/mm3 (1.96-9.15); NEUTROPHILS PERCENT AUTO 62 % (41-73); Platelet Count 190 K/mm3 (150-400); RDW Coefficient Variation 15.7 % (11.7-14.2); RDW Standard Deviation 54.5 fL (35.1-46.3); Red Blood Cell Count 4.05 M/mm3 (4.30-5.90); White Blood Cell Count 5.09 K/mm3 (4.00-11.30)
[2022-12-05 15:27] LABS: Albumin, Blood 3.8 g/dL (3.4-5.0); Albumin/Globulin Ratio 0.9 (0.8-1.8); Bilirubin, Total 0.6 mg/dL (0.1-1.0); Bun/Creatinine Ratio 20.1 (12.0-20.0); Creatinine, Blood 0.9 mg/dL (0.60-1.20); Globulin, Blood 4.3 g/dL (2.2-4.0); Potassium, Blood 3.5 mmol/L (3.5-5.5); Total Protein, Blood 8.1 g/dL (6.4-8.2)
== END | disposition home or self-care (01) ==
LOC: LAB SHORT 11:30 → LAB 11:30
PROVIDERS: Family Medicine
DX: Z22.7 Latent tuberculosis (principal)
CPT/HCPCS: 80053; 85025

== ENCOUNTER → 2022-12-19 | Outpatient (CLI) | payer OTHER ==
[~2022-12-19] MED LIST changes: +ALBU4; +ATOR20; +Ativan1 MG; +METOCLOPRAMIDE; +PRAZ1; +PYRI100
== END | disposition home or self-care (01) ==
LOC: LAB 09:15 → LAB SHORT 09:15
DX: M25.572 Pain in left ankle and joints of left foot (principal)
CPT/HCPCS: 84550

== ENCOUNTER 2022-12-23 06:02 | Day surgery (SDC) | payer OTHER ==
[~2022-12-23] VITALS: Ht 172.7 cm; Wt 125.9 kg
[~2022-12-23 06:02] MED LIST changes: -ALBU4; -ATOR20; -Ativan1 MG; -METOCLOPRAMIDE; -PRAZ1; -PYRI100
[2022-12-23] MEDS ORDERED: Ativan1 MG (06:37)
[2022-12-23] MEDS ORDERED: PRAZ1 (06:39)
[2022-12-23] MEDS ORDERED: ALBU4 (06:41)
[2022-12-23] MEDS ORDERED: PYRI100 (06:42)
[2022-12-23] MEDS ORDERED: ATOR20 (06:42)
[2022-12-23] MEDS ORDERED: METOCLOPRAMIDE (06:43)
--- NOTE | 2022-12-23 08:04 | NUR ---
12/23/22 0804 HENRY FRANK IV PUT IN RH IN BUT COULD NOT ADVANCE. SECOND PUT IN RAC ALSO GOT IN BUT COULD NOT ADVANCE. THIRD ONE PUT IN LH COULD NOT BE ADVANCED.FORTH ONE PUT IN LFA WAS IN BUT COULD NOT BE ADVANCED.RBC COULD NOT BE ADVANCED.SIXTH AND SEVENTH ONE WAS PUT IN THE LEFT HAND AND BOTH COULD NOT BE ADVANCED.
== END 2022-12-23 08:10 | disposition home or self-care (01) ==
LOC: ORSCSDS 06:02
DX: R13.10 Dysphagia, unspecified (principal); Z53.9 Procedure and treatment not carried out, unspecified reason
CPT/HCPCS: J2001; J2250; J2704; J7120

== ENCOUNTER → 2023-01-23 | Outpatient (CLI) | payer OTHER ==
[~2023-01-23] MED LIST changes: +ALBU4; +ATOR20; +Ativan1 MG; +METOCLOPRAMIDE; +PRAZ1; +PYRI100
[2023-01-23 11:54] LABS: Source, Urine Clean Catch
[2023-01-23 14:15] LABS: Red Blood Cells, Urine 0-2 /hpf (0-2); White Blood Cells, Urine 0-2 /hpf (0-5)
[2023-01-23 14:16] LABS: Amorphous Light (0-Heavy); Bacteria Mod /hpf; Hyaline Casts 0-2 /lpf (0-2); Mucus Light (0-Heavy); Squamous Epithelial Cells Rare /hpf (Few)
== END | disposition home or self-care (01) ==
LOC: LAB SHORT 11:51
PROVIDERS: Family Medicine
DX: R30.0 Dysuria (principal); R39.15 Urgency of urination; R35.1 Nocturia
CPT/HCPCS: 81015; 87086; 87147

== ENCOUNTER 2023-02-12 00:59 | Day surgery (SDC) | payer OTHER ==
[2023-02-12 11:13] VITALS: BP 123/75
[2023-02-12] MEDS ORDERED: Flonase 0.05% N16 GM (12:53)
[2023-02-12] MEDS ORDERED: PRAZ1 (12:54)
[2023-02-12] MEDS ORDERED: SUMA25 PO (12:55)
[2023-02-12] MEDS ORDERED: ALBU2.5V5 (13:44)
[2023-02-12] MEDS ORDERED: ANORO ELLIPTA1 EACH (13:44)
[2023-02-12] MEDS ORDERED: OMEP20ER (13:44)
[2023-02-12] MEDS ORDERED: XARELTO20 MG (13:44)
[2023-02-12] MEDS ORDERED: FLUTICASONE-SA1 EAC1 (13:44)
[2023-02-12] MEDS ORDERED: SERT100 PO (13:45)
[2023-02-12] MEDS ORDERED: PRAZ1 PO (13:45)
[2023-02-12] MEDS ORDERED: LORA.5 PO (13:45)
[2023-02-12] MEDS ORDERED: FERSU90EL (13:45)
[2023-02-12] MEDS ORDERED: ATOR10 PO (13:45)
[2023-02-12] MEDS ORDERED: CHLO25B (13:45)
[2023-02-12] MEDS ORDERED: HALO.5 PO (13:45)
[2023-02-12] MEDS ORDERED: METH40 PO (13:46)
[2023-02-12] MEDS ORDERED: ISONIAZID (13:46)
[2023-02-18] MEDS ORDERED: FERSU300 PO (18:08)
[2023-02-18] MEDS ORDERED: PYRI100 PO (18:09)
[2023-02-18] MEDS ORDERED: METO10 PO (18:10)
== END 2023-02-12 11:13 | disposition home or self-care (01) ==
LOC: ATC 00:59
DX: T18.128D Food in esophagus causing other injury, subsequent encounter (principal); Z88.0 Allergy status to penicillin; Z87.891 Personal history of nicotine dependence
CPT/HCPCS: 99214; C1751

== ENCOUNTER 2023-02-12 13:24 | Day surgery (SDC) | payer OTHER ==
[~2023-02-12] VITALS: Ht 172.7 cm; Wt 131.3 kg
[~2023-02-12 13:24] MED LIST changes: +Flonase 0.05% N16 GM
[2023-02-12] MEDS ORDERED: XARELTO20 MG (13:44)
[2023-02-12] MEDS ORDERED: ALBU2.5V5 (13:44)
[2023-02-12] MEDS ORDERED: ANORO ELLIPTA1 EACH (13:44)
[2023-02-12] MEDS ORDERED: OMEP20ER (13:44)
[2023-02-12] MEDS ORDERED: FLUTICASONE-SA1 EAC1 (13:44)
[2023-02-12] MEDS ORDERED: SERT100 PO (13:45)
[2023-02-12] MEDS ORDERED: HALO.5 PO (13:45)
[2023-02-12] MEDS ORDERED: CHLO25B (13:45)
[2023-02-12] MEDS ORDERED: LORA.5 PO (13:45)
[2023-02-12] MEDS ORDERED: ATOR10 PO (13:45)
[2023-02-12] MEDS ORDERED: FERSU90EL (13:45)
[2023-02-12] MEDS ORDERED: PRAZ1 PO (13:45)
[2023-02-12] MEDS ORDERED: METH40 PO (13:46)
[2023-02-12] MEDS ORDERED: ISONIAZID (13:46)
[2023-02-12 15:40] VITALS: BP 93/58
[2023-02-18] MEDS ORDERED: FERSU300 PO (18:08)
[2023-02-18] MEDS ORDERED: PYRI100 PO (18:09)
[2023-02-18] MEDS ORDERED: METO10 PO (18:10)
== END 2023-02-12 15:42 | disposition home or self-care (01) ==
LOC: ORSCSDS 13:24
PROVIDERS: Internal Medicine Gastroenterology
PROC: 0D757ZZ Dilation of Esophagus, Via Natural or Artificial Opening (ICD-10-PCS; principal; 2023-02-12 14:45)
PROC: 0DB58ZX Excision of Esophagus, Via Natural or Artificial Opening Endoscopic, Diagnostic (ICD-10-PCS; principal; 2023-02-12 14:45)
DX: R13.14 Dysphagia, pharyngoesophageal phase (principal); K21.00 Gastro-esophageal reflux disease with esophagitis, without bleeding; I10 Essential (primary) hypertension; J44.9 Chronic obstructive pulmonary disease, unspecified; Z87.891 Personal history of nicotine dependence; G40.909 Epilepsy, unspecified, not intractable, without status epilepticus; F41.8 Other specified anxiety disorders; Z79.899 Other long term (current) drug therapy
CPT/HCPCS: 88305; 88312; J0330; J0461; J2001; J2405; J2704; J7120; Q9968

== ENCOUNTER → 2023-06-11 | Outpatient (CLI) | payer OTHER ==
[~2023-06-11] MED LIST changes: +ALBU2.5V5; +ANORO ELLIPTA1 EACH; +ATOR10 PO; +CHLO25B; +FERSU300 PO; +FERSU90EL; +FLUTICASONE-SA1 EAC1; +HALO.5 PO; +LORA.5 PO; +METH40 PO; +METO10 PO; +OMEP20ER; +PRAZ1 PO; +PYRI100 PO; +XARELTO20 MG
[2023-06-11 13:16] LABS: Follicle Stimulating Hormone 0.9 mIU/ml (0.7-10.8)
[2023-06-11 13:19] LABS: Luteinizing Hormone 0.5 mIU/ml (1.2-10.6); Prolactin 18.6 ng/mL (2.5-17.4)
== END ==
LOC: LAB SHORT 10:14 → LAB 10:14
PROVIDERS: Family Medicine
DX: N62 Hypertrophy of breast (principal); T50.904A Poisoning by unspecified drugs, medicaments and biological substances, undetermined, initial encounter
CPT/HCPCS: 36415; 83001; 83002; 84146; 84270

== ENCOUNTER 2023-08-05 14:36 | Emergency (ER) | payer OTHER ==
[~2023-08-05] VITALS: Ht 172.7 cm; Wt 137.4 kg
[2023-08-05 14:45] VITALS: BP 135/95
[2023-08-05 15:33] LABS: Source, Urine Clean Catch
[2023-08-05 15:41] LABS: Hematocrit 39.1 % (37.0-53.0); Hemoglobin 13.6 g/dL (13.5-17.5); Mean Corpuscular HGB 35.6 pg (26.0-34.0); Mean Corpuscular HGB Conc 34.8 g/dL (31.5-36.5); Mean Corpuscular Volume 102 fL (80-100); NRBC ABSOLUTE 0.02 K/mm3 (0.00-0.02); NRBC Auto 0.3 /100 WBC (0.0-0.2); RDW Coefficient Variation 15.8 % (11.7-14.2); RDW Standard Deviation 58.9 fL (35.1-46.3); Red Blood Cell Count 3.82 M/mm3 (4.30-5.90)
[2023-08-05 15:43] LABS: Appearance, Urine Clear (Clear); Bilirubin, Urine Neg (Neg); Blood, Urine Neg (Neg); Color, Urine Yellow (P-Yellow); Glucose Qualitative, Urine Neg (Neg); Ketones, Urine 1+ (Neg); Leukocyte Esterase, Urine Neg (Neg); Nitrite, Urine Neg (Neg); Protein, Urine 1+ (Neg); Specific Gravity, Urine 1.015 (1.003-1.022); Urobilinogen, Urine NORM (Normal)
[2023-08-05 15:55] LABS: International Normalized Ratio 0.98; Prothrombin Time Results 10.3 Sec (9.7-11.5)
[2023-08-05 15:57] LABS: Potassium, Blood 5.3 mmol/L (3.5-5.5)
[2023-08-05 15:58] LABS: Albumin, Blood 3.7 g/dL (3.4-5.0); Albumin/Globulin Ratio 0.9 (0.8-1.8); Bilirubin, Total 0.4 mg/dL (0.1-1.0); Bun/Creatinine Ratio 21.3 (12.0-20.0); Calcium, Blood 9.6 mg/dL (8.5-10.1); Creatinine, Blood 0.75 mg/dL (0.60-1.20); Globulin, Blood 4.2 g/dL (2.2-4.0); Total Protein, Blood 7.9 g/dL (6.4-8.2)
[2023-08-05 16:12] LABS: BAND PERCENT MAN 14 % (0-8); BASOPHILS PERCENT MAN 0 % (0-2); EOSINOPHILS PERCENT MAN 0 % (0-6); LYMPHOCYTES ABSOLUTE MAN 1.24 K/mm3 (0.84-5.20); LYMPHOCYTES PERCENT MAN 18 % (21-46); MONOCYTES ABSOLUTE MAN 0.13 K/mm3 (0.16-1.47); MONOCYTES PERCENT MAN 2 % (4-13); NEUTROPHILS ABSOLUTE MAN 5.52 K/mm3 (1.96-9.15); SEG NEUTROPHILS PERCENT MAN 66 % (41-73); TOTAL CELLS COUNTED 100
== END 2023-08-05 17:27 | disposition home or self-care (01) ==
LOC: ER 14:36
PROVIDERS: Student in an Organized Health Care Education/Training Program
DX: S09.90XA Unspecified injury of head, initial encounter (principal); S50.812A Abrasion of left forearm, initial encounter; I45.10 Unspecified right bundle-branch block; J44.9 Chronic obstructive pulmonary disease, unspecified; G40.909 Epilepsy, unspecified, not intractable, without status epilepticus; F32.A Depression, unspecified; Z88.1 Allergy status to other antibiotic agents; Z88.0 Allergy status to penicillin; Z88.5 Allergy status to narcotic agent; Z88.2 Allergy status to sulfonamides; Z91.030 Bee allergy status; Z88.6 Allergy status to analgesic agent; Z79.01 Long term (current) use of anticoagulants; Z79.899 Other long term (current) drug therapy; Z87.891 Personal history of nicotine dependence; W18.30XA Fall on same level, unspecified, initial encounter; Y92.481 Parking lot as the place of occurrence of the external cause; J18.9 Pneumonia, unspecified organism; R05.3 Chronic cough; R06.02 Shortness of breath; J98.11 Atelectasis; J98.4 Other disorders of lung; N62 Hypertrophy of breast
CPT/HCPCS: 70450; 71250; 80053; 85025; 85610; 93005; 93010; 99284-25

== ENCOUNTER 2023-09-03 12:08 | Emergency (ER) | payer OTHER ==
[~2023-09-03] VITALS: Ht 172.7 cm; Wt 148.8 kg
[2023-09-03 15:20] LABS: BASOPHILS ABSOLUTE AUTO 0.01 K/mm3 (0.00-0.23); BASOPHILS PERCENT AUTO 0 % (0-2); EOSINOPHILS ABSOLUTE AUTO 0.16 K/mm3 (0.00-0.68); EOSINOPHILS PERCENT AUTO 3 % (0-6); Hematocrit 36.2 % (37.0-53.0); Hemoglobin 12.4 g/dL (13.5-17.5); IMMATURE GRAN ABSOLUTE AUTO 0.04 K/mm3 (0.00-0.10); IMMATURE GRAN PERCENT AUTO 1 % (0-1); LYMPHOCYTES PERCENT AUTO 24 % (21-46); MONOCYTES ABSOLUTE AUTO 0.59 K/mm3 (0.16-1.47); MONOCYTES PERCENT AUTO 10 % (4-13); Mean Corpuscular HGB 35.8 pg (26.0-34.0); Mean Corpuscular HGB Conc 34.3 g/dL (31.5-36.5); Mean Corpuscular Volume 105 fL (80-100); Mean Platelet Volume 10.8 fL (9.1-12.4); NEUTROPHILS ABSOLUTE AUTO 3.72 K/mm3 (1.96-9.15); NEUTROPHILS PERCENT AUTO 63 % (41-73); Platelet Count 163 K/mm3 (150-400); RDW Coefficient Variation 16.2 % (11.7-14.2); RDW Standard Deviation 62.5 fL (35.1-46.3); Red Blood Cell Count 3.46 M/mm3 (4.30-5.90); White Blood Cell Count 5.92 K/mm3 (4.00-11.30)
[2023-09-03 15:44] LABS: Albumin, Blood 3.5 g/dL (3.4-5.0); Albumin/Globulin Ratio 0.9 (0.8-1.8); Bilirubin, Total 0.3 mg/dL (0.1-1.0); Bun/Creatinine Ratio 19.6 (12.0-20.0); Calcium, Blood 8.9 mg/dL (8.5-10.1); Creatinine, Blood 0.77 mg/dL (0.60-1.20); Potassium, Blood 4.4 mmol/L (3.5-5.5); Total Protein, Blood 7.5 g/dL (6.4-8.2)
[2023-09-03 16:30] VITALS: BP 110/67
[2023-09-03] MEDS ORDERED: Lasix20 MG PO (16:37)
== END 2023-09-03 17:00 | disposition home or self-care (01) ==
LOC: ER 12:08
PROVIDERS: Physician Assistant
DX: M25.552 Pain in left hip (principal); R60.0 Localized edema; Z88.8 Allergy status to other drugs, medicaments and biological substances; Z88.0 Allergy status to penicillin; Z91.030 Bee allergy status; Z88.5 Allergy status to narcotic agent; Z88.2 Allergy status to sulfonamides; Z79.899 Other long term (current) drug therapy; G43.909 Migraine, unspecified, not intractable, without status migrainosus; G40.909 Epilepsy, unspecified, not intractable, without status epilepticus; J44.9 Chronic obstructive pulmonary disease, unspecified; Z87.891 Personal history of nicotine dependence; W01.0XXA Fall on same level from slipping, tripping and stumbling without subsequent striking against object, initial encounter
CPT/HCPCS: 71046; 73502; 80053; 83880; 84484; 85025; 93005; 93010; 99284-25

== ENCOUNTER → 2023-10-23 | Outpatient (CLI) | payer OTHER ==
[~2023-10-23] MED LIST changes: +Lasix20 MG PO
[2023-10-23 19:36] LABS: BASOPHILS ABSOLUTE AUTO 0.01 K/mm3 (0.00-0.23); BASOPHILS PERCENT AUTO 0 % (0-2); EOSINOPHILS ABSOLUTE AUTO 0.22 K/mm3 (0.00-0.68); EOSINOPHILS PERCENT AUTO 4 % (0-6); Hematocrit 43.7 % (37.0-53.0); Hemoglobin 14.8 g/dL (13.5-17.5); IMMATURE GRAN ABSOLUTE AUTO 0.05 K/mm3 (0.00-0.10); IMMATURE GRAN PERCENT AUTO 1 % (0-1); LYMPHOCYTES PERCENT AUTO 25 % (21-46); MONOCYTES PERCENT AUTO 10 % (4-13); Mean Corpuscular HGB 34.8 pg (26.0-34.0); Mean Corpuscular HGB Conc 33.9 g/dL (31.5-36.5); Mean Corpuscular Volume 103 fL (80-100); Mean Platelet Volume 10.2 fL (9.1-12.4); NEUTROPHILS ABSOLUTE AUTO 3.85 K/mm3 (1.96-9.15); NEUTROPHILS PERCENT AUTO 61 % (41-73); Platelet Count 144 K/mm3 (150-400); RDW Coefficient Variation 14.6 % (11.7-14.2); RDW Standard Deviation 54.4 fL (35.1-46.3); Red Blood Cell Count 4.25 M/mm3 (4.30-5.90); White Blood Cell Count 6.33 K/mm3 (4.00-11.30)
[2023-10-23 19:52] LABS: Percent Saturation 19.6 % (20.0-50.0)
== END ==
LOC: LAB SHORT 14:40 → LAB 14:40
PROVIDERS: Family Medicine
DX: D64.9 Anemia, unspecified (principal); E29.1 Testicular hypofunction
CPT/HCPCS: 82728; 83540; 83550; 85025

== ENCOUNTER 2023-12-24 11:48 | Emergency (ER) | payer OTHER ==
[~2023-12-24] VITALS: Ht 172.7 cm; Wt 149.2 kg
[2023-12-24 13:19] LABS: BASOPHILS ABSOLUTE AUTO 0.02 K/mm3 (0.00-0.23); BASOPHILS PERCENT AUTO 0 % (0-2); EOSINOPHILS ABSOLUTE AUTO 0.13 K/mm3 (0.00-0.68); EOSINOPHILS PERCENT AUTO 2 % (0-6); Hematocrit 46.1 % (37.0-53.0); Hemoglobin 15.5 g/dL (13.5-17.5); IMMATURE GRAN ABSOLUTE AUTO 0.03 K/mm3 (0.00-0.10); IMMATURE GRAN PERCENT AUTO 0 % (0-1); LYMPHOCYTES ABSOLUTE AUTO 1.64 K/mm3 (0.84-5.20); LYMPHOCYTES PERCENT AUTO 24 % (21-46); MONOCYTES ABSOLUTE AUTO 0.73 K/mm3 (0.16-1.47); MONOCYTES PERCENT AUTO 11 % (4-13); Mean Corpuscular HGB 33.7 pg (26.0-34.0); Mean Corpuscular HGB Conc 33.6 g/dL (31.5-36.5); Mean Corpuscular Volume 100 fL (80-100); Mean Platelet Volume 9.7 fL (9.1-12.4); NEUTROPHILS ABSOLUTE AUTO 4.34 K/mm3 (1.96-9.15); NEUTROPHILS PERCENT AUTO 63 % (41-73); Platelet Count 147 K/mm3 (150-400); RDW Coefficient Variation 14.4 % (11.7-14.2); RDW Standard Deviation 53.4 fL (35.1-46.3); White Blood Cell Count 6.89 K/mm3 (4.00-11.30)
[2023-12-24 13:43] LABS: Albumin, Blood 3.9 g/dL (3.4-5.0); Bilirubin, Total 0.3 mg/dL (0.1-1.0); Bun/Creatinine Ratio 20.8 (12.0-20.0); Calcium, Blood 9.6 mg/dL (8.5-10.1); Creatinine, Blood 0.77 mg/dL (0.60-1.20); Potassium, Blood 4.2 mmol/L (3.5-5.5); Total Protein, Blood 7.9 g/dL (6.4-8.2)
[2023-12-24] MEDS ORDERED: FentaNYL Citrate 50 MCG/ML 2 ML Injection IV ONE (14:30)
[2023-12-24] MEDS ORDERED: Ketorolac Tromethamine 15mg Vial IV ONE (14:30)
[2023-12-24 16:30] VITALS: BP 157/103
[2023-12-24] MEDS ORDERED: CLIN300 PO (16:41)
== END 2023-12-24 16:45 | disposition home or self-care (01) ==
LOC: ER 11:48
PROVIDERS: Physician Assistant
DX: L03.211 Cellulitis of face (principal); Z88.1 Allergy status to other antibiotic agents; Z88.0 Allergy status to penicillin; Z88.6 Allergy status to analgesic agent; Z88.2 Allergy status to sulfonamides; Z79.899 Other long term (current) drug therapy; G43.909 Migraine, unspecified, not intractable, without status migrainosus; G40.909 Epilepsy, unspecified, not intractable, without status epilepticus; J44.9 Chronic obstructive pulmonary disease, unspecified; Z87.891 Personal history of nicotine dependence
CPT/HCPCS: 70487; 80053; 85025; 96374-59; 96375; 99284-25; J1885; J3010; Q9967

== ENCOUNTER 2024-03-06 09:59 | Emergency (ER) | payer OTHER ==
[~2024-03-06] VITALS: Ht 172.7 cm; Wt 137.4 kg
[~2024-03-06 09:59] MED LIST changes: +ANTIDEPRESSANT; +CLIN300 PO; +LOSA25 PO
[2024-03-06] MEDS ORDERED: FentaNYL Citrate 50 MCG/ML 2 ML Injection IV ONE (11:10)
[2024-03-06 12:02] LABS: BASOPHILS PERCENT AUTO 0 % (0-2); EOSINOPHILS ABSOLUTE AUTO 0.11 K/mm3 (0.00-0.68); EOSINOPHILS PERCENT AUTO 2 % (0-6); Hematocrit 42.4 % (37.0-53.0); Hemoglobin 14.7 g/dL (13.5-17.5); IMMATURE GRAN ABSOLUTE AUTO 0.03 K/mm3 (0.00-0.10); IMMATURE GRAN PERCENT AUTO 1 % (0-1); LYMPHOCYTES ABSOLUTE AUTO 1.38 K/mm3 (0.84-5.20); LYMPHOCYTES PERCENT AUTO 22 % (21-46); MONOCYTES PERCENT AUTO 10 % (4-13); Mean Corpuscular HGB 35.4 pg (26.0-34.0); Mean Corpuscular HGB Conc 34.7 g/dL (31.5-36.5); Mean Corpuscular Volume 102 fL (80-100); Mean Platelet Volume 9.9 fL (9.1-12.4); NEUTROPHILS ABSOLUTE AUTO 4.17 K/mm3 (1.96-9.15); NEUTROPHILS PERCENT AUTO 66 % (41-73); Platelet Count 134 K/mm3 (150-400); RDW Coefficient Variation 14.7 % (11.7-14.2); RDW Standard Deviation 55.4 fL (35.1-46.3); Red Blood Cell Count 4.15 M/mm3 (4.30-5.90); White Blood Cell Count 6.29 K/mm3 (4.00-11.30)
[2024-03-06] MEDS ORDERED: Methadone HCL 10 MG TAB PO ONE (12:20)
[2024-03-06 12:29] LABS: Albumin, Blood 3.7 g/dL (3.4-5.0); Albumin/Globulin Ratio 1.1 (0.8-1.8); Bilirubin, Total 0.4 mg/dL (0.1-1.0); Calcium, Blood 9.2 mg/dL (8.5-10.1); Creatinine, Blood 0.83 mg/dL (0.60-1.20); Globulin, Blood 3.5 g/dL (2.2-4.0); Potassium, Blood 3.9 mmol/L (3.5-5.5); Total Protein, Blood 7.2 g/dL (6.4-8.2)
[2024-03-06] MEDS ORDERED: HYDROmorphone HCl/Pf 1MG SYR IV ONE (14:30)
[2024-03-06 14:45] VITALS: BP 123/76
== END 2024-03-06 15:27 | disposition home or self-care (01) ==
LOC: ER 09:59
PROVIDERS: Student in an Organized Health Care Education/Training Program
DX: R55 Syncope and collapse (principal); S06.9X9A Unspecified intracranial injury with loss of consciousness of unspecified duration, initial encounter; S80.02XA Contusion of left knee, initial encounter; S20.211A Contusion of right front wall of thorax, initial encounter; W01.10XA Fall on same level from slipping, tripping and stumbling with subsequent striking against unspecified object, initial encounter; Z88.1 Allergy status to other antibiotic agents; Z88.0 Allergy status to penicillin; Z88.5 Allergy status to narcotic agent; Z91.030 Bee allergy status; Z88.2 Allergy status to sulfonamides; Z79.899 Other long term (current) drug therapy; G43.909 Migraine, unspecified, not intractable, without status migrainosus; G40.909 Epilepsy, unspecified, not intractable, without status epilepticus; J44.9 Chronic obstructive pulmonary disease, unspecified; Z87.891 Personal history of nicotine dependence
CPT/HCPCS: 70450; 71046; 72125; 73564; 80053; 83880; 84484; 85025; 93005; 93010; 96374; 96375; 99285-25; A9270; J1170; J3010

== ENCOUNTER → 2024-06-28 | Outpatient (CLI) | payer OTHER ==
[~2024-06-28] MED LIST changes: +AMLO5 PO; +OLAN10 PO
[2024-06-28 20:07] LABS: Albumin, Blood 3.9 g/dL (3.4-5.0); Bilirubin, Total 0.4 mg/dL (0.1-1.0); Bun/Creatinine Ratio 23.8 (12.0-20.0); Calcium, Blood 8.8 mg/dL (8.5-10.1); Creatinine, Blood 0.71 mg/dL (0.60-1.20); Globulin, Blood 3.8 g/dL (2.2-4.0); Potassium, Blood 3.9 mmol/L (3.5-5.5); Total Protein, Blood 7.7 g/dL (6.4-8.2)
== END ==
LOC: LAB SHORT 18:37 → LAB 18:37
PROVIDERS: Family Medicine
DX: I10 Essential (primary) hypertension (principal)
CPT/HCPCS: 80053

== ENCOUNTER 2024-07-25 08:43 | Day surgery (SDC) | payer OTHER ==
[~2024-07-25] VITALS: Ht 172.7 cm; Wt 138.9 kg
[~2024-07-25 08:43] MED LIST changes: -ALBU2.5V5; +ALBU2.5V5 INH; +Lactated Ringer's 1,000 ML IV ONE; -OMEP20ER
[2024-07-25] MEDS ORDERED: FURO40 PO (09:30)
[2024-07-25] MEDS ORDERED: EPINEPhrine HCl 1 MG / ML 30ML Vial ONE (09:46)
[2024-07-25] MEDS ORDERED: Lidocaine 2%-Epineph 1:100000 20 ML MDV ONE (09:47)
[2024-07-25] MEDS ORDERED: Rocuronium Bromide 10 MG/ML 5ML Injection IV ONE (09:51)
[2024-07-25] MEDS ORDERED: Dexamethasone Sod Phos 10 MG/ML 1ML VIAL ONE (09:51)
[2024-07-25] MEDS ORDERED: Ondansetron HCl 2 MG / ML 2ML Vial ONE (09:51)
[2024-07-25] MEDS ORDERED: propofoL 40 ML IV ONE (09:51)
[2024-07-25] MEDS ORDERED: FentaNYL Citrate 50 MCG/ML 2 ML Injection ONE ×2 (09:52→13:27)
[2024-07-25] MEDS ORDERED: Midazolam HCl 1MG / ML 2ML Vial ONE (09:52)
[2024-07-25] MEDS ORDERED: Ipratropium/Albuterol SulF 2.5-0.5MG/3 ML Amp ONE (10:05)
[2024-07-25] MEDS ORDERED: PROAIR DIGIHAL90 MCG (10:08)
[2024-07-25] MEDS ORDERED: Sugammadex Sodium 200 MG/2ML SDV (100 MG/ML) ONE (10:30)
[2024-07-25] MEDS ORDERED: Lactated Ringer's 1,000 ML IV ONE ×2 (10:31→12:12)
--- NOTE | 2024-07-25 10:34 | NUR ---
07/25/24 Kaylee4 Debbie Quinones ORDER PER DR JIMENEZ
[2024-07-25] MEDS ORDERED: Phenylephrine HCl 100 MCG/ML-NS 10MLSYR (1MG/10ML) ONE (11:11)
[2024-07-25] MEDS ORDERED: ePHEDrine Sulfate 50 MG/ML 1ML Injection ONE (11:12)
--- NOTE | 2024-07-25 13:11 | NUR ---
07/25/24 1311 Taisha Andrew PT'S IS AT BEDSIDE. PT UP TO CHAIR, TOLERATING FLUIDS WELL. PT'S SPO2 KEEPS DROPPING IN UPPER 80'S. 4L REBREATHER PUT ON PT, AND PT'S SPO2 IS AT 98%. PT STATES THAT HIS PAIN LEVEL 5/10. PAIN MEDICATION DISCUSSED.
[2024-07-25] MEDS ORDERED: OxyCODONE HCL 5 MG TAB ONE (13:15)
[2024-07-25 13:26] VITALS: BP 112/56
== END 2024-07-25 14:01 | disposition home or self-care (01) ==
LOC: ORSCSDS 08:43
PROVIDERS: Otolaryngology
PROC: 09SM0ZZ Reposition Nasal Septum, Open Approach (ICD-10-PCS; principal; 2024-07-25 10:30)
DX: J34.2 Deviated nasal septum (principal); J34.3 Hypertrophy of nasal turbinates; I10 Essential (primary) hypertension; E78.5 Hyperlipidemia, unspecified; J44.89 Other specified chronic obstructive pulmonary disease; G47.33 Obstructive sleep apnea (adult) (pediatric); E66.01 Morbid (severe) obesity due to excess calories; Z68.42 Body mass index [BMI] 45.0-49.9, adult; G40.909 Epilepsy, unspecified, not intractable, without status epilepticus; Z79.899 Other long term (current) drug therapy
CPT/HCPCS: A9270; J0171; J1100; J2250; J2371; J2405; J2704; J3010; J7120

== ENCOUNTER 2024-07-26 12:06 | Observation (INO) | payer OTHER ==
[~2024-07-26] VITALS: Ht 172.7 cm; Wt 138.8 kg
[~2024-07-26 12:06] MED LIST changes: +FURO40 PO; -Lactated Ringer's 1,000 ML IV ONE; +PROAIR DIGIHAL90 MCG
[2024-07-26 13:17] LABS: Albumin, Blood 3.8 g/dL (3.4-5.0); Albumin/Globulin Ratio 0.9 (0.8-1.8); Bilirubin, Total 0.5 mg/dL (0.1-1.0); Bun/Creatinine Ratio 18.4 (12.0-20.0); Calcium, Blood 9.2 mg/dL (8.5-10.1); Creatinine, Blood 1.03 mg/dL (0.60-1.20); Globulin, Blood 4.2 g/dL (2.2-4.0); Potassium, Blood 3.8 mmol/L (3.5-5.5)
[2024-07-26 13:18] LABS: BASOPHILS ABSOLUTE AUTO 0.01 K/mm3 (0.00-0.23); BASOPHILS PERCENT AUTO 0 % (0-2); EOSINOPHILS ABSOLUTE AUTO 0.02 K/mm3 (0.00-0.68); EOSINOPHILS PERCENT AUTO 0 % (0-6); Hematocrit 45.4 % (37.0-53.0); Hemoglobin 15.6 g/dL (13.5-17.5); IMMATURE GRAN ABSOLUTE AUTO 0.06 K/mm3 (0.00-0.10); IMMATURE GRAN PERCENT AUTO 1 % (0-1); LYMPHOCYTES ABSOLUTE AUTO 1.49 K/mm3 (0.84-5.20); LYMPHOCYTES PERCENT AUTO 14 % (21-46); MONOCYTES ABSOLUTE AUTO 0.91 K/mm3 (0.16-1.47); MONOCYTES PERCENT AUTO 8 % (4-13); Mean Corpuscular HGB 36.1 pg (26.0-34.0); Mean Corpuscular HGB Conc 34.4 g/dL (31.5-36.5); Mean Corpuscular Volume 105 fL (80-100); Mean Platelet Volume 9.5 fL (9.1-12.4); NEUTROPHILS ABSOLUTE AUTO 8.47 K/mm3 (1.96-9.15); NEUTROPHILS PERCENT AUTO 77 % (41-73); Platelet Count 167 K/mm3 (150-400); RDW Coefficient Variation 13.7 % (11.7-14.2); RDW Standard Deviation 53.6 fL (35.1-46.3); Red Blood Cell Count 4.32 M/mm3 (4.30-5.90); White Blood Cell Count 10.96 K/mm3 (4.00-11.30)
[2024-07-26] MEDS ORDERED: Acetaminophen 500 MG Tab PO ONE (15:20)
[2024-07-26] MEDS ORDERED: OxyCODONE HCL 5 MG TAB PO ONE (17:40)
[2024-07-26] MEDS ORDERED: Acetaminophen 325 MG TABLET PO PRN (19:55)
[2024-07-26] MEDS ORDERED: OxyCODONE HCL 5 MG TAB PO PRN (20:00)
[2024-07-26] MEDS ORDERED: Albuterol 2.5 MG/3 ML VIAL INH PRN (20:00)
[2024-07-26] MEDS ORDERED: Meclizine HCl 25 MG Tab PO SCH (20:00)
[2024-07-26] MEDS ORDERED: NS 1,000 ML IV ONE (20:00)
[2024-07-26] MEDS ORDERED: Ondansetron HCl 2 MG / ML 2ML Vial IV PRN (20:00)
[2024-07-26] MEDS ORDERED: Sennosides 8.6 MG Tab PO SCH (21:00)
[2024-07-26] MEDS ORDERED: NS 1,000 ML IV SCH (21:00)
[2024-07-26] MEDS ORDERED: Prazosin HCl 1 MG Cap PO SCH (21:00)
[2024-07-26 21:16] VITALS: BP 144/95
[2024-07-27 04:18] VITALS: BP 153/87
[2024-07-27] MEDS ORDERED: OxyCODONE HCL 5 MG TAB PO ONE (05:00)
[2024-07-27] MEDS ORDERED: Omeprazole 20 MG CapCR PO SCH (06:00)
[2024-07-27 06:08] LABS: Hematocrit 42.1 % (37.0-53.0); Hemoglobin 14.4 g/dL (13.5-17.5); Mean Corpuscular HGB 36.1 pg (26.0-34.0); Mean Corpuscular HGB Conc 34.2 g/dL (31.5-36.5); Mean Corpuscular Volume 106 fL (80-100); Mean Platelet Volume 9.4 fL (9.1-12.4); Platelet Count 146 K/mm3 (150-400); RDW Coefficient Variation 14.1 % (11.7-14.2); RDW Standard Deviation 55.1 fL (35.1-46.3); Red Blood Cell Count 3.99 M/mm3 (4.30-5.90); White Blood Cell Count 10.22 K/mm3 (4.00-11.30)
[2024-07-27 06:30] LABS: Bun/Creatinine Ratio 14.7 (12.0-20.0); Calcium, Blood 8.1 mg/dL (8.5-10.1); Creatinine, Blood 0.95 mg/dL (0.60-1.20); Potassium, Blood 3.8 mmol/L (3.5-5.5)
--- NOTE | 2024-07-27 06:30 | NUR ---
SHIFT SUMMARY PATIENT IS ALERT AND ORIENTED. PATIENT HAS HAD NO ACUTE EVENTS THIS SHIFT. VITAL SIGNS REVIEWED. PATIENT IS A RECENT ADMIT FOR DIZZINESS AND WEAKNESS. PATIENT REMAINS DIZZY AND WEAK. PATIENT REPORTS INCREASED PAIN IN NASAL REGION DUE TO RECENT SURGERY, MEDICATED PER EMAR. PATIENT HAS HAD NO COMPLAINTS OF NAUSEA, SOB OR VOMITTING THIS SHIFT. PATIENT IS ON 1L NC AND SATTING ABOVE 92 PERCENT. IV FLUIDS INFUSING ORDERED. BED IN LOCKED AND LOWEST POSITION. CALL LIGHT IN PLACE. WILL MONITOR UNTIL SHIFT CHANGE.
[2024-07-27 07:36] VITALS: BP 131/81
[2024-07-27] MEDS ORDERED: Ferrous Sulfate 325 MG Tab PO SCH (09:00)
[2024-07-27] MEDS ORDERED: Atorvastatin 10 MG Tab PO SCH (09:00)
[2024-07-27] MEDS ORDERED: Losartan Potassium 25 MG Tab PO SCH (09:00)
[2024-07-27] MEDS ORDERED: Rivaroxaban 10 MG Tab PO SCH (09:00)
[2024-07-27] MEDS ORDERED: Docusate Sodium 100 MG Cap PO SCH (09:00)
[2024-07-27] MEDS ORDERED: Sertraline HCl 100 MG Tab PO SCH (09:00)
--- NOTE | 2024-07-27 09:00 | NUR ---
PATIENT INQUIRING ABOUT METHADONE DOSING. CURRENT DOSE IS 120MG QD. WILL CONTACT PROVIDER FOR ORDER.
--- NOTE | 2024-07-27 09:17 | NUR ---
CALL TO [facility] OPIOID TREATMENT PROGRAM ([phone]) AND WAS ABLE TO CONFIRM PATIENT'S DOSE OF METHADONE 120MG QD WITH NURSEIRVIN. PROVIDER NOTIFIED.
[2024-07-27] MEDS ORDERED: Methadone HCL 10 MG TAB PO SCH (10:00)
[2024-07-27 13:02] LABS: SARS-Cov-2 (COVID-19) PCR, MMC NEGATIVE (NEGATIVE)
--- NOTE | 2024-07-27 15:43 | NUR ---
PATIENT STILL WITH C/O PAIN 04/11 TWO HOURS AFTER APAP. C/O THROBBING PAIN IN FACE. PROVIDER APPREHENSIVE TO GIVE OPIOIDS SECONDARY TO OPIOID TREATMENT. AUTHORIZED KETOROLAC 30MG Q6H IV PRN. VERBAL ORDER READ BACK AND VERIFIED BY DR YANEZ.
[2024-07-27 15:47] VITALS: BP 110/77
[2024-07-27] MEDS ORDERED: Ketorolac Tromethamine 30mg Vial IV PRN (15:50)
--- NOTE | 2024-07-27 18:33 | NUR ---
END OF SHIFT SUMMARY: A&Ox4. PLEASANT AND COOPERATIVE WITH CARE. CALLS APPROPRIATELY AND IS ABLE TO ADVOCATE NEEDS EFFECTIVELY. HAS NOT AMBULATED TODAY; UNABLE TWO WALK MORE THAN THREE STEPS WITH PT DUE TO ATAXIA AND WEAKNESS. HAS GREATLY IMPROVED THIS AFTERNOON AND IS MUCH MORE AWAKE. NO MEAL INTAKE TODAY UNTIL THIS EVENING AT DINNER TIME DURING WHICH HE STATED HE'D LIKE SOMETHIN TO EAT. CONTINENT WITH URINAL USE. NO BM AT THIS TIME. MEDS WHOLE WITH FLUIDS. TELE SINUS RHYTHM. METHADONE TREATMENT PROGRAM PATIENT ON 120MG QD. DID EXERIENCE BREAKTHROUGH PAIN THIS EVENING; PROVIDER ORDERED TORADOL AFTER WHICH PAIN CAME DOWN TO 3 FROM A 6. NS @ 75mL/hr. IV FREQUENTLY OCCLUDING; UPON CHECKING, NOTED TO BE BARELY IN AND DECANNULATED DURING CHECK. BED IN LOWEST POSITION. CALL LIGHT WITHIN REACH. ALL NEEDS MET. REPORT TO ONCOMING NURSE.
[2024-07-27 19:17] VITALS: BP 120/86
[2024-07-28 02:57] VITALS: BP 114/75
--- NOTE | 2024-07-28 03:14 | NUR ---
SHIFT SUMMARY PT IS A&O X4, COOPERATIVE WITH CARE, ABLE TO MAKE HIS NEEDS KNOWN. @HS, NEW IV INSERTION BY NEON SIGN SERVICER STACEY TO LEFT FOREARM. NS INFUSING ORDERED @75MLS/HR. C/O 06/11 "AROUND FACE" PER PT REPORT. PRN TYLENOL 650MG NOT EFFECTIVE. 1X TORADOL PRN IV ADMINISTERED ORDERED, PT REPORTS EFFECTIVNESS OF 03/11. TELE: SR@74. O2@2L VIA NASAL CANNULA, MAINTAINING>95% DURING THIS SHIFT. NO ACUTE EVENTS/DISTRESS NOTED/REPORTED DURING THIS SHIFT. BED AT THE LOWEST POSITION, CALL LIGHT W/I REACH.
[2024-07-28 05:58] LABS: BASOPHILS ABSOLUTE AUTO 0.02 K/mm3 (0.00-0.23); BASOPHILS PERCENT AUTO 0 % (0-2); EOSINOPHILS ABSOLUTE AUTO 0.14 K/mm3 (0.00-0.68); EOSINOPHILS PERCENT AUTO 2 % (0-6); Hematocrit 41.5 % (37.0-53.0); IMMATURE GRAN ABSOLUTE AUTO 0.05 K/mm3 (0.00-0.10); IMMATURE GRAN PERCENT AUTO 1 % (0-1); LYMPHOCYTES ABSOLUTE AUTO 1.27 K/mm3 (0.84-5.20); LYMPHOCYTES PERCENT AUTO 17 % (21-46); MONOCYTES ABSOLUTE AUTO 0.78 K/mm3 (0.16-1.47); MONOCYTES PERCENT AUTO 10 % (4-13); Mean Corpuscular HGB 35.9 pg (26.0-34.0); Mean Corpuscular HGB Conc 33.7 g/dL (31.5-36.5); Mean Corpuscular Volume 106 fL (80-100); Mean Platelet Volume 9.1 fL (9.1-12.4); NEUTROPHILS ABSOLUTE AUTO 5.45 K/mm3 (1.96-9.15); NEUTROPHILS PERCENT AUTO 71 % (41-73); Platelet Count 132 K/mm3 (150-400); RDW Coefficient Variation 14.1 % (11.7-14.2); RDW Standard Deviation 55.7 fL (35.1-46.3); White Blood Cell Count 7.71 K/mm3 (4.00-11.30)
[2024-07-28 06:38] LABS: Albumin, Blood 3.3 g/dL (3.4-5.0); Albumin/Globulin Ratio 0.9 (0.8-1.8); Bilirubin, Total 0.6 mg/dL (0.1-1.0); Bun/Creatinine Ratio 18.6 (12.0-20.0); Calcium, Blood 8.8 mg/dL (8.5-10.1); Creatinine, Blood 0.97 mg/dL (0.60-1.20); Globulin, Blood 3.7 g/dL (2.2-4.0); Potassium, Blood 3.9 mmol/L (3.5-5.5)
[2024-07-28 07:59] VITALS: BP 134/91
--- NOTE | 2024-07-28 16:28 | NUR ---
PER DR CRESPO, SHE WOULD LIKE PATIENT TO STAY ANOTHER NIGHT DUE TO INCREASED WEAKNESS, ATAXIA AND UNCONTROLLED PAIN.
--- NOTE | 2024-07-28 18:50 | NUR ---
362: END OF SHIFT SUMMARY: A&Ox4. PLEASANT AND COOPERATIVE WITH MOST CARE, THOUGHT WAS FAIRLY NON-CONTRIBUTORY THIS MORNING, INCLUDING PHYSICAL THERAPY. HE ATTRIBUTES THIS TO BEING TIRED AND IN PAIN, PARTICULARLY OROPHARYNX PAIN. CALLS APPROPRIATELY AND IS ABLE TO ADVOCATE NEEDS EFFECTIVELY. AMBULATING WITH SBA FROM FAMILY MEMBER IN ROOM. CONTINENT OF BOTH BOWEL AND BLADDER. SPO2 >9% ON 1LPM T/O DAY. INITIALLY PLANNED FOR DISCHARGED, BUT WAS POSTPONED DUE TO PAIN AND INABILITY TO CONTRIBUTE TO A LOT OF ADLs. MEDICATED x2 PRN TORADOL. BED IN LOWEST POSITION. CALL LIGHT WITHIN REACH. ALL NEEDS MET. REPORT TO ONCOMING NURSE.
[2024-07-28 19:19] VITALS: BP 135/82
--- NOTE | 2024-07-29 02:58 | NUR ---
SHIFT SUMMARY PT IS A&O X4, COOPERATIVE [facility] CARE, PLEASANT. 2L D/T C/O SOB PER PT. O2 CONTINUOUS MONITORING>95%. PT REPORTS TORADOL EFFECTIVE FOR PAIN AROUND THE FACE. PT REPORTS 5-6/10 PAIN LEVEL. NO ACUTE EVENTS DURING THIS SHIFT. BED AT THE LOWEST POSITION, CALL LIGHT WITHIN REACH. PT IS ABLE TO MAKE HIS NEEDS KNOWN.
[2024-07-29 03:01] VITALS: BP 104/64
[2024-07-29 07:12] LABS: BASOPHILS ABSOLUTE AUTO 0.01 K/mm3 (0.00-0.23); BASOPHILS PERCENT AUTO 0 % (0-2); EOSINOPHILS ABSOLUTE AUTO 0.14 K/mm3 (0.00-0.68); EOSINOPHILS PERCENT AUTO 2 % (0-6); Hematocrit 39.2 % (37.0-53.0); Hemoglobin 13.3 g/dL (13.5-17.5); IMMATURE GRAN ABSOLUTE AUTO 0.03 K/mm3 (0.00-0.10); IMMATURE GRAN PERCENT AUTO 1 % (0-1); LYMPHOCYTES ABSOLUTE AUTO 1.01 K/mm3 (0.84-5.20); LYMPHOCYTES PERCENT AUTO 16 % (21-46); MONOCYTES ABSOLUTE AUTO 0.44 K/mm3 (0.16-1.47); MONOCYTES PERCENT AUTO 7 % (4-13); Mean Corpuscular HGB 35.7 pg (26.0-34.0); Mean Corpuscular HGB Conc 33.9 g/dL (31.5-36.5); Mean Corpuscular Volume 105 fL (80-100); Mean Platelet Volume 8.8 fL (9.1-12.4); NEUTROPHILS ABSOLUTE AUTO 4.55 K/mm3 (1.96-9.15); NEUTROPHILS PERCENT AUTO 74 % (41-73); Platelet Count 121 K/mm3 (150-400); RDW Coefficient Variation 13.9 % (11.7-14.2); RDW Standard Deviation 54.2 fL (35.1-46.3); Red Blood Cell Count 3.73 M/mm3 (4.30-5.90); White Blood Cell Count 6.18 K/mm3 (4.00-11.30)
[2024-07-29 07:20] VITALS: BP 139/89
[2024-07-29 07:30] LABS: Albumin/Globulin Ratio 0.8 (0.8-1.8); Bilirubin, Total 0.5 mg/dL (0.1-1.0); Bun/Creatinine Ratio 13.8 (12.0-20.0); Calcium, Blood 8.3 mg/dL (8.5-10.1); Creatinine, Blood 0.94 mg/dL (0.60-1.20); Globulin, Blood 3.8 g/dL (2.2-4.0); Potassium, Blood 3.8 mmol/L (3.5-5.5); Total Protein, Blood 6.8 g/dL (6.4-8.2)
--- NOTE | 2024-07-29 13:35 | NUR ---
ATA STILL VERY ANXIOUS REGARDING GOING HOME TONIGHT, CONCERNED THAT HIS OXYGEN IS DROPPED AT NIGHT. HAS COMPLETED SEVERAL SLEEP STUDIES AND HAS QUALIFIED FOR CPAP MORE THAN ONCE BUT IS UNABLE TO USE IT SECONDARY TO NASAL STENTS RELATED TO SURGICAL REPAIR OF DEVIATED SETPUM. NOTIFIED DR. Liu THAT PATIENT IS REQUESTING TO STAY ANOTHER NIGHT. EDUCATION PROVIDED REGARDING GOALS OF CARE AND WHAT WE'RE ABLE TO DO FOR PATIENT.
[2024-07-29 15:21] VITALS: BP 137/92
--- NOTE | 2024-07-29 20:11 | NUR ---
DISCHARGE SUMMARY: A&Ox4. PLEASANT AND COOPERATIVE WITH CARE. FLAT AFFECT. WEANED TO ROOM AIR TODAY. HOME O2 EVAL COMPLETED AND YIELDED RA. APPREHENSIVE TO GO HOME, AT FIRST, BUT EVENTUALLY COMFORTABLE WITH DISCHARGING. WILL HAVE HOME HEALTH NURSE FOLLOWING UP WITH HIM, AND THIS COMFORTS HIM. GIRLFRIEND AT BEDSIDE MOST OF THE DAY. WILL FOLLOW-UP WITH PCP. IV REMOVED BY THIS RN. TELE SINUS WITH FIRST-DEGREE AV BLOCK AND BUNDLE BRANCH BLOCK. LEFT UNIT WITH ALL BELONGINGS AND DISCHARGE PACKET VIA WHEELCHAIR.
== END 2024-07-29 18:20 | disposition home health service (06) ==
LOC: ER 12:06 → MEDS 12:07
PROVIDERS: Nurse Practitioner Acute Care; Physician Assistant; Registered Nurse; ADMIT Student in an Organized Health Care Education/Training Program
DX: J96.01 Acute respiratory failure with hypoxia (principal); J44.9 Chronic obstructive pulmonary disease, unspecified; F32.A Depression, unspecified; K21.9 Gastro-esophageal reflux disease without esophagitis; F43.12 Post-traumatic stress disorder, chronic; F19.20 Other psychoactive substance dependence, uncomplicated; E78.5 Hyperlipidemia, unspecified; I10 Essential (primary) hypertension; G47.33 Obstructive sleep apnea (adult) (pediatric); Z87.891 Personal history of nicotine dependence; Z88.0 Allergy status to penicillin; Z88.2 Allergy status to sulfonamides; Z88.5 Allergy status to narcotic agent; Z88.8 Allergy status to other drugs, medicaments and biological substances; Z91.038 Other insect allergy status; G40.909 Epilepsy, unspecified, not intractable, without status epilepticus
CPT/HCPCS: 36415; 70450; 71045; 73110; 80048; 80053; 83880; 84484; 84550; 85025; 85027; 85651; 93005; 93010; 94640; 94664; 94760; 94761; 94762; 96374; 96375; 96376; 97110; 97112; 97162; 97530; 99285-25; A9270; G0378; J1885; J7030; U0002

== ENCOUNTER → 2024-08-16 | Outpatient (CLI) | payer OTHER ==
[2024-08-16 17:25] LABS: BASOPHILS ABSOLUTE AUTO 0.01 K/mm3 (0.00-0.23); BASOPHILS PERCENT AUTO 0 % (0-2); EOSINOPHILS ABSOLUTE AUTO 0.14 K/mm3 (0.00-0.68); EOSINOPHILS PERCENT AUTO 3 % (0-6); Hematocrit 44.4 % (37.0-53.0); Hemoglobin 15.3 g/dL (13.5-17.5); IMMATURE GRAN ABSOLUTE AUTO 0.03 K/mm3 (0.00-0.10); IMMATURE GRAN PERCENT AUTO 1 % (0-1); LYMPHOCYTES PERCENT AUTO 27 % (21-46); MONOCYTES ABSOLUTE AUTO 0.56 K/mm3 (0.16-1.47); MONOCYTES PERCENT AUTO 12 % (4-13); Mean Corpuscular HGB 35.5 pg (26.0-34.0); Mean Corpuscular HGB Conc 34.5 g/dL (31.5-36.5); Mean Corpuscular Volume 103 fL (80-100); Mean Platelet Volume 10.4 fL (9.1-12.4); NEUTROPHILS ABSOLUTE AUTO 2.75 K/mm3 (1.96-9.15); NEUTROPHILS PERCENT AUTO 58 % (41-73); Platelet Count 155 K/mm3 (150-400); RDW Coefficient Variation 13.5 % (11.7-14.2); RDW Standard Deviation 51.1 fL (35.1-46.3); Red Blood Cell Count 4.31 M/mm3 (4.30-5.90); White Blood Cell Count 4.79 K/mm3 (4.00-11.30)
[2024-08-16 21:14] LABS: Albumin, Blood 3.9 g/dL (3.4-5.0); Albumin/Globulin Ratio 1.1 (0.8-1.8); Bilirubin, Total 0.3 mg/dL (0.1-1.0); Bun/Creatinine Ratio 19.9 (12.0-20.0); Calcium, Blood 9.3 mg/dL (8.5-10.1); Creatinine, Blood 0.95 mg/dL (0.60-1.20); Globulin, Blood 3.7 g/dL (2.2-4.0); Potassium, Blood 4.2 mmol/L (3.5-5.5); Total Protein, Blood 7.6 g/dL (6.4-8.2)
[2024-08-21 05:37] LABS: TESTOSTERONE, FREE BY DIALYSIS 59.3 pg/mL (47.0-244.0); TESTOSTERONE, TOTAL MASS SPEC 282.6 ng/dL (300.0-890.0)
== END ==
LOC: LAB SHORT 15:41 → LAB 15:41
PROVIDERS: Family Medicine
DX: R60.0 Localized edema (principal); E29.1 Testicular hypofunction
CPT/HCPCS: 80053; 84402; 84403; 85025

== ENCOUNTER 2024-09-23 16:58 | Observation (INO) | payer OTHER ==
[~2024-09-23] VITALS: Ht 170.2 cm; Wt 135.6 kg
[2024-09-23 18:00] LABS: BASOPHILS ABSOLUTE AUTO 0.01 K/mm3 (0.00-0.23); BASOPHILS PERCENT AUTO 0 % (0-2); EOSINOPHILS ABSOLUTE AUTO 0.11 K/mm3 (0.00-0.68); EOSINOPHILS PERCENT AUTO 2 % (0-6); Hematocrit 44.5 % (37.0-53.0); Hemoglobin 15.8 g/dL (13.5-17.5); IMMATURE GRAN ABSOLUTE AUTO 0.02 K/mm3 (0.00-0.10); IMMATURE GRAN PERCENT AUTO 0 % (0-1); LYMPHOCYTES PERCENT AUTO 29 % (21-46); MONOCYTES ABSOLUTE AUTO 0.51 K/mm3 (0.16-1.47); MONOCYTES PERCENT AUTO 9 % (4-13); Mean Corpuscular HGB 35.3 pg (26.0-34.0); Mean Corpuscular HGB Conc 35.5 g/dL (31.5-36.5); Mean Corpuscular Volume 99 fL (80-100); Mean Platelet Volume 9.6 fL (9.1-12.4); NEUTROPHILS ABSOLUTE AUTO 3.37 K/mm3 (1.96-9.15); NEUTROPHILS PERCENT AUTO 60 % (41-73); Platelet Count 137 K/mm3 (150-400); RDW Coefficient Variation 14.1 % (11.7-14.2); RDW Standard Deviation 51.9 fL (35.1-46.3); Red Blood Cell Count 4.48 M/mm3 (4.30-5.90); White Blood Cell Count 5.62 K/mm3 (4.00-11.30)
[2024-09-23 18:27] LABS: Ethanol (Alcohol), Blood, Med <3 mg/dL; Salicylate 1.7 mg/dL (2.8-20.0)
[2024-09-23] MEDS ORDERED: LORazepam 1 MG Tab PO PRN (18:35)
[2024-09-23 18:50] LABS: Alanine Aminotransfer (ALT/SGP 75 U/L (12-78); Albumin, Blood 3.7 g/dL (3.4-5.0); Albumin/Globulin Ratio 0.9 (0.8-1.8); Alk Phos 84 U/L (50-136); Anion Gap 11 mmol/L (3-11); Aspartate Aminotrans (AST/SGOT 53 U/L (12-37); Bilirubin, Total 0.7 mg/dL (0.1-1.0); Blood Urea Nitrogen 11 mg/dL (8-24); Bun/Creatinine Ratio 12.2 (12.0-20.0); CO2, Blood 24 mmol/L (21-32); Calcium, Blood 8.9 mg/dL (8.5-10.1); Chloride, Blood 103 mmol/L (98-108); Globulin, Blood 4.1 g/dL (2.2-4.0); Glomerular Filtration Rate 105 (60-); Glucose, Blood 84 mg/dL (70-99); Potassium, Blood 3.9 mmol/L (3.5-5.5); Sodium, Blood 134 mmol/L (136-145); Total Protein, Blood 7.8 g/dL (6.4-8.2)
[2024-09-23 18:51] LABS: Acetaminophen, Random <2.0 ug/mL (10.0-30.0)
[2024-09-23 18:54] LABS: Source, Urine Clean Catch
[2024-09-23 19:02] LABS: Appearance, Urine Clear (Clear); Bilirubin, Urine Neg (Neg); Blood, Urine Neg (Neg); Color, Urine Yellow (P-Yellow); Glucose Qualitative, Urine Neg (Neg); Ketones, Urine Neg (Neg); Leukocyte Esterase, Urine 1+ (Neg); Nitrite, Urine Neg (Neg); Protein, Urine 2+ (Neg); Urobilinogen, Urine 1+ (Normal)
[2024-09-23 19:11] LABS: Bacteria Mod /hpf; Red Blood Cells, Urine 0-2 /hpf (0-2); Squamous Epithelial Cells Rare /hpf (Few)
[2024-09-23 19:23] LABS: U Amphetamine Screen Not Detected; U Barbituate Screen Not Detected; U Benzodiazapine Screen DETECTED; U Buprenorphine Screen Not Detected; U Cannabinoids Screen Not Detected; U Cocaine Screen Not Detected; U Methadone Screen DETECTED; U Methamphetamine Screen Not Detected; U Opiates Screen Not Detected; U Oxycodone Screen Not Detected; U Phencyclidine Screen Not Detected
[2024-09-23] MEDS ORDERED: Prazosin HCl 1 MG Cap PO SCH (21:00)
[2024-09-24] MEDS ORDERED: Omeprazole 20 MG CapCR PO SCH (06:00)
[2024-09-24] MEDS ORDERED: Rivaroxaban 10 MG Tab PO SCH (09:00)
[2024-09-24] MEDS ORDERED: Sertraline HCl 50 MG Tab PO SCH (09:00)
[2024-09-24] MEDS ORDERED: Atorvastatin 10 MG Tab PO SCH (09:00)
[2024-09-24] MEDS ORDERED: Methadone HCL 10 MG TAB PO SCH (09:00)
[2024-09-24] MEDS ORDERED: Losartan Potassium 50 MG Tab PO SCH (09:00)
[2024-09-24 13:46] VITALS: BP 138/81
[2024-09-24] MEDS ORDERED: LATUDA60 MG PO (17:43)
== END 2024-09-24 15:02 | disposition other institution (70) ==
LOC: ER 16:58 → EOR 18:55
PROVIDERS: Physician Assistant; ADMIT Student in an Organized Health Care Education/Training Program
DX: F25.1 Schizoaffective disorder, depressive type (principal); R45.851 Suicidal ideations; F32.A Depression, unspecified; J44.9 Chronic obstructive pulmonary disease, unspecified; G40.909 Epilepsy, unspecified, not intractable, without status epilepticus; Z87.891 Personal history of nicotine dependence; Z79.01 Long term (current) use of anticoagulants; Z79.899 Other long term (current) drug therapy; Z88.0 Allergy status to penicillin; Z88.2 Allergy status to sulfonamides; Z88.5 Allergy status to narcotic agent; Z88.6 Allergy status to analgesic agent; Z88.1 Allergy status to other antibiotic agents; Z91.038 Other insect allergy status; Z86.711 Personal history of pulmonary embolism; Z90.49 Acquired absence of other specified parts of digestive tract
CPT/HCPCS: 36415; 80053; 80320; 81001; 85025; 87086; 93005; 93010; 99285-25; A9270; G0378; G0480

== ENCOUNTER 2024-09-24 10:05 | Inpatient (IN) | payer OTHER ==
[2024-09-24] MEDS ORDERED: Aluminum Hydroxide 320MG/5ML 473 ML PO PRN (13:40)
[2024-09-24] MEDS ORDERED: Acetaminophen 325 MG TABLET PO PRN (13:40)
[2024-09-24] MEDS ORDERED: FLU VACC TS2024-25(6MOS UP)/PF 45 MCG/0.5 ML SYRINGE IM SCH (13:45)
[2024-09-24] MEDS ORDERED: LATUDA60 MG PO (17:43)
--- NOTE | 2024-09-24 17:50 | NUR ---
PT WAS ADMITTED TO THE UNIT AT 15:05, ADMISSION COMPLETED. WHEN ASKED IF HE WAS HAVING FEELINGS OF SELF HARM HE REPLIED, "I'M TRYING NOT TO." HE DENIED HI. PT RATED HIS ANXIETY LEVEL 8/101w AND HIS CHRONIC HIP PAIN LEVEL AT 6/10w. HE ENDORSED AUDITORY HALUCINATIONS, "THEY WANT ME TO WALK OUT INTO THE ROAD...NASTY THINGS...CALLING ME NAMES...WORTHLESS." PT RESTING ON HIS BED, HE WAS ENCOURAGED TO BE OUT IN THE PT MILIEU.
[2024-09-24] MEDS ORDERED: LORazepam 1 MG Tab PO PRN (18:20)
[2024-09-24] MEDS ORDERED: Ondansetron 4 MG TAB PO PRN (18:20)
[2024-09-24] MEDS ORDERED: Furosemide 40 MG Tab PO PRN (18:20)
[2024-09-24] MEDS ORDERED: Albuterol 2.5 MG/3 ML VIAL INH PRN (18:25)
[2024-09-24] MEDS ORDERED: Prazosin HCl 1 MG Cap PO SCH (21:00)
[2024-09-25 00:39] VITALS: BP 125/93
--- NOTE | 2024-09-25 04:22 | NUR ---
PATIENT WAS IN ROOM IN BED AT THE BEGINNING OF THE SHIFT. HE REMAINED IN HIS BED THROUGHOUT THE SHIFT, COMING OUT X1 TO ASK FOR A TOWEL BECAUSE HE SPILLED SOME WATER-STAFF CLEANED IT UP FOR HIM. HE WAS MOSTLY IN BED RESTING WITH EYES CLOSED AND RESPIRATIONS CONFIRMED. HE AWAKENED FOR EVENING MEDICATIONS AND WAS PLEASANT AND COOPERATIVE WITH CARES, COMPLIANT WITH MEDICATION ADMINISTRATION. HE HAD NO S/SX SUICIDAL IDEATION, ALTHOUGH HE ADMITTED TO "DEPRESSION". HE DID NOT JOIN GROUP FOR SNACK. CONTINUING TO MONITOR FOR SAFETY WITH Q15 MINUTE CHECKS.
[2024-09-25 08:10] VITALS: BP 119/80
[2024-09-25] MEDS ORDERED: Sertraline HCl 100 MG Tab PO SCH (09:00)
[2024-09-25] MEDS ORDERED: Rivaroxaban 10 MG Tab PO SCH (09:00)
[2024-09-25] MEDS ORDERED: Methadone HCL 10 MG TAB PO SCH (09:00)
[2024-09-25] MEDS ORDERED: Omeprazole 20 MG CapCR PO SCH (09:00)
[2024-09-25] MEDS ORDERED: Ferrous Sulfate 325 MG Tab PO SCH (09:00)
[2024-09-25] MEDS ORDERED: Atorvastatin 10 MG Tab PO SCH (09:00)
[2024-09-25] MEDS ORDERED: Losartan Potassium 25 MG Tab PO SCH (09:00)
[2024-09-25] MEDS ORDERED: LURASIDONE PO SCH (09:00)
[2024-09-25] MEDS ORDERED: HydrOXYzine Pamoate 50 MG Cap PO PRN (12:20)
--- NOTE | 2024-09-25 13:26 | NUR ---
DISCHARGE NOTE PT AxOx4. PLEASANT AND COOPERATIVE WITH CARE. PT REQUESTED TO DC TODAY. PT HAS BEEN FOLLOWING CARE PLAN. PT HAS FLAT AFFECT AND REPORTS SI WITHOUT INTENT AT THIS TIME. HE ALSO ENDORSED HEARING VOICES, BUT STATES THAT HE ALWAYS HEARS THEM AND HIS MEDS HELP QUIET THEM. PT IS ALREADY ESTABLISHED WITH THERAPIST AT [facility] AND AGREES TO FOLLOW WITH THEM TO SET UP APPOINTMENT TOMORROW. DC INSTRUCTIONS DISCUSSED INCLUDING DC MED LIST, FOLLOW UP RECOMMENDATIONS AND PATIENT EDUCATION ON DIAGNOSES. PT'S BELONGINGS RETURNED AND SAFELY ESCORTED OUT TO HIS TRANSPORTATION WITH HIS SO.
== END 2024-09-25 13:24 | disposition home or self-care (01) | DRG 885 ==
LOC: BHU 10:05 → MEDS 10:09 → BHU 15:05
PROVIDERS: ADMIT Psychiatry & Neurology Psychiatry
DX: F25.1 Schizoaffective disorder, depressive type (principal); R45.851 Suicidal ideations; F41.9 Anxiety disorder, unspecified
CPT/HCPCS: A9270

== ENCOUNTER 2024-10-26 00:53 | Emergency (ER) | payer OTHER ==
[~2024-10-26] VITALS: Ht 175.3 cm; Wt 108.9 kg
[~2024-10-26 00:53] MED LIST changes: +LATUDA60 MG PO
[2024-10-26 01:09] VITALS: BP 150/89
[2024-10-26] MEDS ORDERED: Tamsulosin HCl 0.4 MG Cap PO ONE (01:20)
[2024-10-26 02:19] LABS: Source, Urine Foley catheter
[2024-10-26 02:21] LABS: Blood, Urine Neg (Neg); Glucose Qualitative, Urine Neg (Neg); Ketones, Urine Neg (Neg); Leukocyte Esterase, Urine Neg (Neg); Nitrite, Urine Pos (Neg); Protein, Urine Neg (Neg); Urobilinogen, Urine 3+ (Normal)
[2024-10-26 02:51] LABS: Appearance, Urine Clear (Clear); Bacteria Not Seen /hpf; Bilirubin, Urine 2+ (Neg); Color, Urine Orange (P-Yellow); Red Blood Cells, Urine Not Seen /hpf (0-2); Squamous Epithelial Cells Not Seen /hpf (Few); White Blood Cells, Urine Not Seen /hpf (0-5)
[2024-10-26] MEDS ORDERED: TAMS.4ER PO (03:03)
== END 2024-10-26 03:09 | disposition home or self-care (01) ==
LOC: ER 00:53
PROVIDERS: Student in an Organized Health Care Education/Training Program
DX: R33.9 Retention of urine, unspecified (principal); R10.30 Lower abdominal pain, unspecified; G43.909 Migraine, unspecified, not intractable, without status migrainosus; J44.9 Chronic obstructive pulmonary disease, unspecified; Z87.891 Personal history of nicotine dependence; Z79.899 Other long term (current) drug therapy; Z88.1 Allergy status to other antibiotic agents; Z88.0 Allergy status to penicillin; Z88.2 Allergy status to sulfonamides; Z91.030 Bee allergy status; Z88.6 Allergy status to analgesic agent
CPT/HCPCS: 51702; 51798; 81001; 87086; 99283-25; A9270

== ENCOUNTER 2025-05-23 05:38 | Day surgery (SDC) | payer OTHER ==
[~2025-05-23] VITALS: Ht 172.7 cm; Wt 129.4 kg
[2025-05-23] VITALS (16 sets, daily range): BP systolic 99–154; BP diastolic 59–105
[2025-05-23] MEDS ORDERED: Chlorhexidine Mouth Care 15 ML UDC MT SCH (06:20)
[2025-05-23] MEDS ORDERED: Ropivacaine 0.5% HCl/Pf 123.125 MG,EPINEPHrine HCL 0.25 MG,Ketorolac Tromethamine 15 MG... INFIL SCH (06:20)
[2025-05-23] MEDS ORDERED: Tranexamic Acid 100 ML IV SCH (06:33)
[2025-05-23] MEDS ORDERED: Clindamycin 900mg in D5W 50ML 50 ML IV SCH ×2 (06:55→16:00)
[2025-05-23] MEDS ORDERED: FentaNYL Citrate 50 MCG/ML 2 ML Injection IV PRN ×2 (07:05→07:10)
[2025-05-23] MEDS ORDERED: Ondansetron HCl 2 MG / ML 2ML Vial IV PRN ×2 (07:10→10:00)
[2025-05-23] MEDS ORDERED: HYDROmorphone HCl/Pf 1MG SYR IV PRN ×2 (07:10→10:05)
[2025-05-23] MEDS ORDERED: Midazolam HCl 1MG / ML 2ML Vial IV PRN (07:10)
[2025-05-23] MEDS ORDERED: Albuterol 2.5 MG/3 ML VIAL INH PRN ×2 (07:10)
--- NOTE | 2025-05-23 07:41 | NUR ---
Ambulatory in Day SurgeryPre-Op teaching done. Pt verbalizes understanding. History, Chart, Medications and Allergies reviewed before start of procedure.Patient confirms NPO status and agrees with scheduled surgery. Patient reports completing Chlorhexadine shower X 5 prior to admission to hospital AND NOSE OINTMENT FOR H/O +MSSA
[2025-05-23] MEDS ORDERED: Phenylephrine HCl 100 MCG/ML-NS 10MLSYR (1MG/10ML) ONE (09:15)
[2025-05-23] MEDS ORDERED: Ondansetron HCl 2 MG / ML 2ML Vial ONE (09:21)
[2025-05-23] MEDS ORDERED: Dexamethasone Sod Phos 10 MG/ML 1ML VIAL ONE (09:21)
[2025-05-23] MEDS ORDERED: Magnesium Hydroxide Conc 10 ML UDC PO PRN (10:00)
[2025-05-23] MEDS ORDERED: Metoclopramide HCl 5MG / ML 2ML Vial IV PRN (10:00)
[2025-05-23] MEDS ORDERED: Prochlorperazine Edisylate 10 mg Vial IV PRN (10:05)
--- NOTE | 2025-05-23 10:56 | NUR ---
ARRIVAL TO UNIT AFTER RECEIVING REPORT FROM FIRE EXTINGUISHER REPAIRER INSPECTOR, PATIENT TRANSFERRED TO ROOM VIA BED AT APPROX 1045. S/P R RADHA W/ SPINAL. MINIMAL SENSATION TO BLE. ABLE TO WIGGLE TOES. CAP REFILL <3 SECONDS. PPP. DENIES PAIN AT THIS TIME. VSS. CURRENTLY ON 3L VIA NC - SATs >90%. RR EVEN, UNLABORED. CLEAR UPPER LOBES AND DIMINISHED IN BASES. PRINEO AND TEGADERM DX C/D/I. POLAR PACK IN PLACE. DENIES N/V - SMALL SNACKS AND WATER WITHIN REACH. PER , DUE TO A FAMILY EMERGENCY, PATIENT WILL NOT HAVE TRANSPORT HOME FOR DC UNTIL TOMORROW MORNING. PLAN FOR PATIENT TO STAY OVERNIGHT AND HIS TO TRANSPORT HIM HOME TOMORROW - INFORMATION SECURITY SPECIALIST AWARE. CALL LIGHT IN REACH.
--- NOTE | 2025-05-23 16:54 | NUR ---
SHIFT SUMMARY NO ACUTE CHANGES SINCE ARRIVAL TO UNIT NOTE. S/P R RADHA W/ SPINAL. SPINAL FULLY RECOVERED - REPORTS FULL SENSATION TO BLE, DENIES N/T. CAP REFILL <3 SECONDS. PPP. MANAGING PAIN PER EMAR AND W/ POLAR PACK. VSS. TITRATED TO ROOM AIR, SATs >90%. RR EVEN, UNLABORED. DENIES SOB. PRINEO AND TEGADERM DX C/D/I. PHYSICAL THERAPY EVAL COMPLETED - AMBULATING W/ SBA FWW GB. CURRENTLY UP IN RECLINER CHAIR. TOLERATING PO INTAKE. X1 VOID. CALL LIGHT IN REACH.
[2025-05-24 03:59] VITALS: BP 114/72
[2025-05-24 05:08] LABS: BASOPHILS ABSOLUTE AUTO 0.02 K/mm3 (0.00-0.23); BASOPHILS PERCENT AUTO 0 % (0-2); EOSINOPHILS ABSOLUTE AUTO 0.01 K/mm3 (0.00-0.68); EOSINOPHILS PERCENT AUTO 0 % (0-6); Hematocrit 36.4 % (37.0-53.0); Hemoglobin 13.1 g/dL (13.5-17.5); IMMATURE GRAN ABSOLUTE AUTO 0.07 K/mm3 (0.00-0.10); IMMATURE GRAN PERCENT AUTO 1 % (0-1); LYMPHOCYTES ABSOLUTE AUTO 1.80 K/mm3 (0.84-5.20); LYMPHOCYTES PERCENT AUTO 16 % (21-46); MONOCYTES ABSOLUTE AUTO 1.35 K/mm3 (0.16-1.47); MONOCYTES PERCENT AUTO 12 % (4-13); Mean Corpuscular HGB Conc 36.0 g/dL (31.5-36.5); Mean Corpuscular Volume 99 fL (80-100); NEUTROPHILS ABSOLUTE AUTO 8.05 K/mm3 (1.96-9.15); NEUTROPHILS PERCENT AUTO 71 % (41-73); NRBC ABSOLUTE 0.00 K/mm3 (0.00-0.02); NRBC Auto 0.0 /100 WBC (0.0-0.2); Platelet Count 117 K/mm3 (150-400); RDW Coefficient Variation 14.2 % (11.7-14.2); RDW Standard Deviation 51.1 fL (35.1-46.3)
--- NOTE | 2025-05-24 05:33 | NUR ---
NOC SHIFT SUMMARY- PT PAIN MANAGED WELL. PT HAS BEEN SLEEPING IN RECLINER. PT DRESSING C/D/I WITH POLAR PACK IN PLACE. PT TOLERATING PO AND VOIDING. CALL LIGHT IN REACH.
[2025-05-24 05:37] LABS: Anion Gap 8.0 mmol/L (3-11); Blood Urea Nitrogen 18.0 mg/dL (8-24); CO2, Blood 27.0 mmol/L (21-32); Calcium, Blood 8.7 mg/dL (8.5-10.1); Chloride, Blood 103.0 mmol/L (98-108); Creatinine, Blood 0.97 mg/dL (0.60-1.20); Glucose, Blood 117.0 mg/dL (70-99); Potassium, Blood 4.2 mmol/L (3.5-5.5); Sodium, Blood 134.0 mmol/L (136-145)
[2025-05-24 07:38] VITALS: BP 122/77
--- NOTE | 2025-05-24 10:36 | NUR ---
DISCHARGE PATIENT IS AOX4, SBA FWW, GB. TEGADERM DRESSING IS C/D/I. ICE MACHING IS PACKED UP. PATIENT HAS CLEARED THERAPY AND IS DISCHARGING HOME. ALL INSTRUCTIONS READ AND SIGNED PACKET IS WITH PATIENT. VSS. IV IS TAKEN OUT INTACT. PATIENT LEAVES TO PRIVATE CAR.
== END 2025-05-24 11:12 | disposition home or self-care (01) ==
LOC: ORSCMMR 05:38 → ORD 07:30 → SURS 10:32 → ORSCMMR 05-24 11:12
PROVIDERS: Orthopaedic Surgery
PROC: 0SR90JA Replacement of Right Hip Joint with Synthetic Substitute, Uncemented, Open Approach (ICD-10-PCS; principal; 2025-05-23 07:30)
DX: M16.11 Unilateral primary osteoarthritis, right hip (principal); I10 Essential (primary) hypertension; E78.5 Hyperlipidemia, unspecified; J44.89 Other specified chronic obstructive pulmonary disease; Z87.891 Personal history of nicotine dependence; G47.33 Obstructive sleep apnea (adult) (pediatric); F41.9 Anxiety disorder, unspecified; F32.A Depression, unspecified; K21.9 Gastro-esophageal reflux disease without esophagitis; G40.909 Epilepsy, unspecified, not intractable, without status epilepticus; E66.01 Morbid (severe) obesity due to excess calories; Z68.41 Body mass index [BMI] 40.0-44.9, adult; Z79.899 Other long term (current) drug therapy; Z79.01 Long term (current) use of anticoagulants
CPT/HCPCS: 36415; 72170; 80048; 85025; 97110; 97116; 97162; A9270; C1713; C1776; J0165; J0735; J0780; J1100; J1885; J2250; J2371; J2405; J2704; J2795; J7120